=== PATIENT | male | born 1955 | race Caucasian/White ===

== ENCOUNTER 2019-10-11 10:27 | Outpatient (CLI) | payer MEDICARE, OTHER, SELFPAY ==
--- NOTE | 2019-10-11 | ECHO_ITS ---
Patient Info Name: Stephen Benoit Age: 63 years : 1955 Gender: Male Ht: 72 in Wt: 190 lbs BSA: 2.10 m2 HR: 65 bpm BP: 149 / 77 mmHg Heart Rhythm: Sinus Rhythm Technical Quality: Good Exam Date: 10/11/2019 11:27 AM Exam Location: [facility] Pulmonary Patient Status: Outpatient Admit Date: 10/11/2019 Staff Ordering Physician: PHYSICIAN NOT ON STAFF, NONSTAFF Elevator Constructor: Leonard Perez RDCS, RT Attending Provider: PHYSICIAN NOT ON STAFF, NONSTAFF Exam Type: CA echo doppler color flow Study Info Indications I27.2 - Other secondary pulmonary hypertension Complete two-dimensional, color flow and Doppler transthoracic echocardiogram is performed. Summary 1. Left ventricle is mildly enlarged with moderate concentric hypertrophy. The left ventricular systolic ejection fraction is calculated to be 57% and visually it appears 55-60%. Grade 2 diastolic dysfunction is present. There appears to be mild inferior apical hypokinesis present. The global longitudinal strain average is -11%, moderately reduced, suggesting early systolic dysfunction. 2. There is mild tricuspid valve regurgitation. 3. Mild pulmonary hypertension, estimated pulmonary arterial systolic pressure is 40 mmHg. 4. normal sinus rhythm. Left Ventricle Left ventricle is mildly enlarged with moderate concentric hypertrophy. The left ventricular systolic ejection fraction is calculated to be 57% and visually it appears 55-60%. Grade 2 diastolic dysfunction is present. There appears to be mild inferior apical hypokinesis present. The global longitudinal strain average is -11%, moderately reduced, suggesting early systolic dysfunction. Left ventricular systolic function is normal, estimated at 55-60%. There is moderately increased left ventricular wall thickness. Left ventricular septal wall motion is normal. The left ventricular diastolic function is grade II diastolic dysfunction. Global longitudinal strain is moderately elevated at 11 %. Right Ventricle Right ventricular chamber dimension is normal. Right ventricular systolic function is normal. Left Atria Left atrial chamber dimension is moderately enlarged. Right Atria Right atrial chamber dimension is normal. Aortic Valve The aortic valve is trileaflet. There is no aortic valve sclerosis. There is no aortic valve stenosis. There is no aortic valve regurgitation. Pulmonic Valve The pulmonic valve is normal. There is no pulmonic valve stenosis. There is no pulmonic regurgitation. Mitral Valve The mitral valve has normal leaflets. There is no mitral valve stenosis. There is trace mitral valve regurgitation. Tricuspid Valve The tricuspid valve leaflets are normal. There is no significant tricuspid valve stenosis. There is mild tricuspid valve regurgitation. Mild pulmonary hypertension, estimated pulmonary arterial systolic pressure is 40 mmHg. Pericardium/Pleural The pericardium appears normal. There is no pericardial effusion. Inferior Vena Cava Normal inferior vena cava with >50% collapse upon inspiration consistent with Empty right atrial pressure, 10 mmHg. Aorta The aortic root size at the sinus of Valsalva is normal. The prox ascending aorta size is normal. Left Ventricular Outflow Tract Name Value Normal LVOT 2D
--- NOTE | 2019-10-16 13:33 | WPDSIXMINUTE ---
Six Minute Walk Six Minute Walk: DOS: 10/11/2019 REQUESTING: Dr. Bela Carranza REASON FOR TESTING: Scleroderma SIX MINUTE WALK this test was conducted per ATS guidelines. This test was conducted on room air. The baseline saturation is 97% and the pulse is 72. The patient walked for 6 minutes without stopping, ending saturation 96% and pulse was 98. The wrist oximeter was unable to obtain readings easily during the test. There was no apparent drop in saturation. IMPRESSION: This Walk study does not show drop in saturation or need for supplemental oxygen with exertion. The patient walked 700 ft, 213 meters, which is less than expected for age.
--- NOTE | 2019-10-16 17:03 | WPDPFTINT ---
PFT Interpretation PFT Interpretation: DOS: 10/11/2019 REQUESTING: Dr. Bela Carranza REASON FOR TESTING: Scleroderma PULMONARY FUNCTION TESTS Results are reproducible and reliable. Spirometry: FEV1 is 42%, 1.41 L. FVC 48%. FEV1% is reduced. No bronchodilator was given. Lung volumes: TLC 55%, moderately severe restrictive impairment. RV/TLC is increased at 41% consistent with air trapping. Airway resistance increased 255%. Diffusion: DLCO is 38%, severely decreased. Flow volume loop: Scooping of the expiratory limb and reduction in overall size consistent with restriction and obstruction. IMPRESSION: Moderately severe restriction and severe obstructive ventilatory defect with air trapping, increased airway resistance and severe diffusion impairment. Compared to a prior PFT 06/16/2018, DLCO is lower, 38% compared to 48% in 2019. FEV1 is similar 42% compared to 46%. TLC is lower, 55% vs 62%. Overall progression of restrictive and obstructive deficits consistent with scleroderma with lung involvement. Krys Mcgrath MD
== END 2019-10-11 10:28 | disposition home or self-care (01) ==
PROVIDERS: PCP Psychiatry & Neurology Neurology
DX: I27.29 Other secondary pulmonary hypertension (principal); R94.2 Abnormal results of pulmonary function studies
CPT/HCPCS: 93306; 94375; 94618; 94726; 94729

== ENCOUNTER 2019-10-24 01:18 | Inpatient (IN) | payer MEDICARE, OTHER, SELFPAY ==
[2019-10-24] VITALS (10 sets, daily range): BP systolic 78–208; BP diastolic 56–82; PULSE 63–93; RESP 16–34; TEMP 36.4–36.8; O2SAT 96–100; BMI 26.6
--- NOTE | ~2019-10-24 | XR_ITS ---
EXAMINATION: XR chest 1V portable DATE: 10/24/2019 01:51 INDICATION: Shortness of breath. TECHNIQUE: A single frontal view of the chest was obtained. COMPARISON: Chest single view 08/01/2017, CT abdomen and pelvis 10/19/2017 FINDINGS: There is a chronic small left pleural effusion. There is a diffuse interstitial pattern in the lungs, consistent with mild pulmonary edema. No pneumothorax. The heart size is normal. Median st ernotomy wires and mediastinal surgical clips are seen, likely from prior coronary artery bypass mayra ting. IMPRESSION: 1. Mild pulmonary edema. 2. Chronic small left pleural effusion. Reviewed, dictated and finalized at location A.
--- NOTE | 2019-10-24 01:40 | ECG_ITS ---
Measurements Intervals [place] Rate: 89 P: 64 [place]: 192 QRS: 51 QRSD: 99 T: 44 QT: 367 QTc: 448 Interpretive Statements SINUS RHYTHM POSSIBLE LEFT ATRIAL ENLARGEMENT ANTEROSEPTAL INFARCT, AGE INDETERMINATE BORDERLINE ST-T WAVE ABNORMALITY- INF/HIGH LAT LEADS BASELINE ARTIFACT- I, II, III, AVR, AVL, AVF, V4-V6 ABNORMAL ECG Electronically Signed On 10-24-2019 7:13:09 CDT by Terry Hernandez D.O.
[2019-10-24 01:53] LABS: Basophils Percent Auto 0.5 % (0.2-1.2); Eosinophils Absolute Auto 0.2 K/mm3 (0-0.3); Eosinophils Percent Auto 2.9 % (0-4.4); Hematocrit 33.2 % (42.0-52.0); Hemoglobin 9.6 g/dL (14.0-18.0); Immature Granulocyte Absolute 0.08 K/mm3 (0.00-0.031); Lymphocytes Absolute Auto 1.28 K/mm3 (0.9-3.2); Lymphocytes Percent Auto 15.9 % (18.3-44.2); Mean Corpuscular HGB Conc 28.9 g/dl (32-36); Mean Corpuscular Hemoglobin 25.2 pg (26-34); Mean Corpuscular Volume 87.1 fl (80-100); Mean Platelet Volume 11.6 fl (7.4-10.4); Monocytes Absolute Auto 1.1 K/mm3 (0.1-0.6); Monocytes Percent Auto 13.7 % (2.6-8.5); Neutrophils Absolute Auto 5.3 K/mm3 (1.3-6.7); Platelet Count Result 267 k/mm3 (150-375); Red Blood Count 3.81 M/mm3 (4.6-6.20); Red Cell Distribution Width 18.2 % (11.5-14.5); White Blood Count 8.1 K/mm3 (4.5-10.0)
[2019-10-24 02:02] LABS: INR 1.2; Partial Thromboplastin Time 31.4 SECONDS (22.3-36.8); Prothrombin Time 14.4 Seconds (11.1-14.7)
[2019-10-24 02:07] LABS: Anion Gap 10 mmol/L (8-16); Blood Urea Nitrogen 35 mg/dL (9-20); Carbon Dioxide 23 mmol/L (22-30); Chloride 103 mmol/L (98-107); Estimated CRCL calculation 45 ml/min; Estimated Glomerular Filt Rate 47; Glucose 159 mg/dL (75-110); Potassium 4.6 mmol/L (3.4-5.0); Sodium 136 mmol/L (137-145)
[2019-10-24 02:11] LABS: Alveolar/Arterial O2 Gradient 611.7 mmHg; Carboxyhemoglobin 0.7 % THb (0-2.0); Fractional Inspired Oxygen 100 %; HCO3 ABG 22.9 mEq/l (22.0-26.0); Methemoglobin ABG 0.2 %THb (0-1.5); Oxygen Content ABG 11.8 %vol (16.0-22.0); Oxygen Saturation ABG 87.4 % (95.0-100.0); Oxyhemoglobin 83.9 % THb (90.0-100.0); PCO2 ABG 44.6 mmHg (35.0-45.0); PO2 ABG 56.7 mmHg (80.0-100.0); PO2 FiO2 Ratio Arterial Blood 0.57 %; Reduced Hemoglobin 15.2 %THb (0-5.0); pH ABG 7.328 (7.350-7.450)
[2019-10-24 02:12] LABS: Modified Allen's Test Pass; Site Drawn LEFT RADIAL
[2019-10-24 02:12] LABS: Hypochromasia 1+ (NORMAL); Ovalocytes 1+ (NORMAL); Platelet Estimate Adequate (Adequate)
[2019-10-24 02:13] LABS: Device OTHER DEVICE
[2019-10-24 02:19] LABS: NT Pro B Type Natriuretic Pept 3660 PG/ML (5-100); Troponin I < 0.012 ng/mL (0.000-0.034)
[2019-10-24] MEDS: FUROSEMIDE INJ 40 MG/4 ML VIAL IV PUSH (02:39)
--- NOTE | 2019-10-24 02:44 | ED.SOB ---
HPI - SOB/Dyspnea General Chief Complaint: Shortness of Breath/Dyspnea Stated Complaint: sob Time Seen by Provider: 10/24/19 01:20 Source: patient Mode of arrival: ambulatory Limitations: clinical condition History of Present Illness HPI Narrative: This patient is a 63 year old male with history of scleroderma who presents for evaluation of sudden onset shortness of breath. Patient has chronic sob due to his scleroderma. He denies worsening cough , chest pain or fever. His reports she noticed that he appeared to be building fluid . She states his umbilicus is protruding more and he seems to have more leg edema. He denies history of CHF but he does see a warp drawer. On EMS arrival, it was stated that patient's oxygen saturation was 87% on room and he had labored breathing. He was placed on BIPAP by EMS. He states he feels better. Related Data Home Medications Medication Instructions Recorded Confirmed aspirin [Adult Low Dose Aspirin] 81 mg PO DAILY 10/24/19 10/24/19 famotidine 40 mg PO DAILY 10/24/19 10/24/19 fluticasone furoate 2 spray INTRANASAL DAILY 10/24/19 10/24/19 gabapentin 300 mg PO BID 10/24/19 10/24/19 glimepiride 4 mg PO DAILY 10/24/19 10/24/19 levothyroxine 75 mcg PO DAILY 10/24/19 10/24/19 losartan 50 mg PO DAILY 10/24/19 10/24/19 metoprolol succinate 50 mg PO DAILY 10/24/19 10/24/19 nifedipine 30 mg PO DAILY 10/24/19 10/24/19 omeprazole 20 mg PO DAILY 10/24/19 10/24/19 rosuvastatin 40 mg PO DAILY 10/24/19 10/24/19 sitagliptin [Januvia] 100 mg PO DAILY 10/24/19 10/24/19 tramadol 50 mg PO Q4H PRN 10/24/19 10/24/19 Allergies Allergy/AdvReac Type Severity Reaction Status Date / Time No Known Allergies Allergy Depression Uncoded 10/24/19 01:22 Review of Systems Review of Systems: All systems reviewed & are unremarkable except as noted in HPI and below Constitutional: Constitutional: Denies chills and Denies fever(s) Cardiovascular: Cardiovascular: Denies chest pain Respiratory: Respiratory: Denies cough, Reports dyspnea and Denies wheezing Gastrointestinal: Gastrointestinal: Denies abdominal pain, Denies nausea and Denies vomiting PMFSH Past Medical History Medical History (Updated 10/24/19 @ 07:23 by Maegan Veronica MD) Hypertension Scleroderma Surgical History Surgical History (Updated 10/24/19 @ 07:19 by Maegan Veronica MD) Hx of CABG Family History Family History (Updated 10/24/19 @ 04:11 by Iglesia Aleman RN) Mother Colon cancer Social History Social History Smoking packs per day: 1.5 Smoking cigarettes per day: 30.0 Years smoked: 43 Smoking pack-years: 64.50 Smoking status: Former smoker Smoking end date: 03/07/11 Alcohol intake: former Substance use: never Spiritual care concerns: No Exam Const: General: alert and ill appearing acutely Other: mild distress Eyes: EOM: EOMs intact bilaterally Resp: Effort & Inspection: no retractions, tachypneic and no use of accessory muscles Auscultation: rales (right) Cardio: Rate: regular rate Rhythm: regular rhythm Heart sounds: Murmur heart sound present GI: Inspection: distended GI Palp: Yes Soft to palpation, No Tenderness to palpation present (GI) and No Guarding due to palpation present (GI) Skin: General skin exam: pallor Neuro: General: patient oriented x3 and moves all extremities Extrem: General: edema bilateral Course Reevaluation(s) Reevaluation #1: Patient states he feels better. His RR 20 and 100 on 4 L NC. I discussed that he will need to be admitted. He is agreeable to staying at [facility] Date: 10/24/19 Time: 02:53 Consultations Consultation #1: I Discussed case with Dr. moore who accepts patient to medical floor. He recommends swabbing for covid Date: 10/24/19 Time: 02:54 Vital Signs Vital signs: Vital Signs Temperature 97.7 F 10/24/19 01:18 Pulse Rate 93 10/24/19 01:18 Respiratory Rate 34 H 10/24/19 01:18 Blood Pressure 208/82
--- NOTE | 2019-10-24 04:10 | ADMGEN ---
This patient, Stephen Benoit, was admitted to 3 [facility] Surg Room 326-01. Patient/family oriented to hospital policies and general routines including ID bracelet, bed and alarms, visiting hours, pain management, procedures, bathroom and other care routines, personal items, smoking policy, room service/diet, and visiting hours. Valuables list has been completed. Information on how to activate the Rapid Response Team has been discussed. Patient/Family are encouraged to report perceived risks to care and to ask questions if they do not understand what they are told or what they should do.
[2019-10-24] MEDS: SODIUM CHLORIDE 0.9% IV 500 ML 999 ML IV CONT ×2 (04:31→05:40)
[2019-10-24] MEDS: LEVOTHYROXINE SODIUM 75 MCG TABLET PO (07:41)
[2019-10-24] MEDS: ASPIRIN 81 MG ENTERIC TABLET PO (09:03)
[2019-10-24] MEDS: ROSUVASTATIN 10 MG TABLET 40 MG PO (09:03)
[2019-10-24] MEDS: FAMOTIDINE 20 MG TABLET 40 MG PO (09:03)
[2019-10-24] MEDS: PANTOPRAZOLE SOD SESQUIHYDRATE 20 MG TAB PO (09:03)
[2019-10-24] MEDS: GLIMEPIRIDE 2 MG TABLET 4 MG PO (09:03)
--- NOTE | 2019-10-24 09:10 | PM.IMHP ---
H&P: HPI History of Present Illness Date/Time: 10/24/19 09:10 Chief complaint: acute respiratory failure with hypoxia Narrative: Date of admission: 10/24/2019 Date of servie: 10/24/2019 Stephen Benoit is a 63 year old male with a history of scleroderma, type 2 diabetes mellitus with nephropathy, HTN, HLD, and CAD s/p CABG in 2018 who presented to the emergency department on 10/24/2019 with complaints of shortness of breath. He said that about 1 day ago, his commented that he was filling up with fluid especially in his lower extremities and his abdomen. He notes that a couple days before that he has been waking up in the middle of the night trying to catch his breath. Yesterday he was outside digging in his backyard with a shovel and had to take several breaks because he felt short of breath. He went to bed that night and woke at approximately 12:30 am gasping for breath and hyperventilating. At that time, his called EMS. He was placed on BiPAP and upon arrival to the emergency department his shortness of breath had improved. He was put on 4 L O2 per nasal cannula and was maintaining adequate oxygenation. He is not on any oxygen at home. Upon my evaluation this morning, he states I feel 300% better than I did last night. He reports chronic chest tightness secondary to his scleroderma which makes it difficult for him to take deep breaths. He denies cough or dyspnea on exertion. He was previously experiencing orthopnea but feels he can lay flat now. He states he is able to take a nice deep breath now and he had not been able to do that the past few days. Review of Systems Review of Systems: Narrative: A 12 point review of systems was reviewed with pertinent positives and negatives as per HPI and below. He denies fever, chills, nausea, vomiting, or abdominal pain. He denies dizziness or lightheadedness. He has neuropathy but denies any numbness or tingling at this time. He denies dysuria, hematuria, urgency or frequency. He alternated between being constipated and having diarrhea, but he had a soft formed BM today. He denies any symptoms of GERD. He denies dysphagia, odynophagia, lof taste or loss of smell. No visual changes. No headaches or confusion. He denies sick contacts or recent travel. He has been following social distance guidelines and wears a mask. 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 [facility] Past Medical History Medical History (Updated 10/24/19 @ 17:24 by Sheela Casillas PA-C) CKD (chronic kidney disease) Congestive heart failure Coronary artery disease Hyperlipidemia Hypertension Hypothyroidism Myocardial infarction Raynauds disease Scleroderma Small bowel obstruction Type 2 diabetes mellitus Surgical History Surgical History (Updated 10/24/19 @ 09:15 by Sheela Casillas PA-C) H/O cardiac catheterization History of appendectomy History of bilateral carpal tunnel release History of tonsillectomy Hx of CABG 2018 Family History Family History (Updated 10/24/19 @ 09:21 by Sheela Casillas PA-C) Mother Colon cancer Father Lung cancer Social History Social History (Updated 10/24/19 @ 09:24 by Sheela Casillas PA-C) Social History: Mr. Benoit lives at home with his . He is independent in his ADLs. He has 2 adult children. He is retired from the [employer]. His PCP is Dr. Sanz at [facility]. He designates his as his surrogate decision maker and he would like to be a full code. Smoking packs per day: 1.5 Smoking cigarettes per day: 30.0 Years smoked: 45 Smoking pack-years: 67.50 Smoking status: Former smoker Smoking end date: 03/07/11 Alcohol intake: current Alcohol use details: Approximately 1 drink/mo Substance use: never Living arrangements: with family Occupation/Education: retired Spiritual care concerns: No Meds Home Medications and Allergies Ho
[2019-10-24 10:21] LABS: Glucose Point of Care 178 (65-105)
[2019-10-24] MEDS: INSULIN ASPART (*BKC) 100 UNITS/ML SUB-Q ×2 (12:13→17:40)
[2019-10-24 14:19] LABS: SARS-CoV-2 RNA PCR Positive
--- NOTE | 2019-10-24 16:15 | PC.NURSE ---
Notified Sheela PAULINO that patient COVID is positive. No new orders were obtained.
[2019-10-24 17:38] LABS: Glucose Point of Care 347 (65-105)
[2019-10-24 17:38] LABS: Glucose Point of Care 243 (65-105)
[2019-10-24] MEDS: FLUTICASONE PROPIONATE 0.05% NA SPR 16 GM BTL (*BKC) 2 SPRAY NASAL (17:42)
[2019-10-24] MEDS: guaiFENesin 12 HR 600 MG TABCR PO (21:04)
[2019-10-24 22:03] LABS: Glucose Point of Care 281 (65-105)
[2019-10-25] VITALS: BP 144/83; PULSE 74; PULSE 75; RESP 18; TEMP 36.9; O2SAT 94
[2019-10-25 04:00] VITALS: BP 152/77; PULSE 74; PULSE 77; RESP 20; TEMP 36.4; O2SAT 100
[2019-10-25] MEDS: LEVOTHYROXINE SODIUM 75 MCG TABLET PO (06:17)
[2019-10-25 06:36] LABS: Basophils Percent Auto 0.1 % (0.2-1.2); Eosinophils Percent Auto 0.4 % (0-4.4); Hematocrit 28.9 % (42.0-52.0); Hemoglobin 8.3 g/dL (14.0-18.0); Immature Granulocyte Absolute 0.06 K/mm3 (0.00-0.031); Immature Granulocyte Percent A 0.7 % (0-0.5); Lymphocytes Percent Auto 9.5 % (18.3-44.2); Mean Corpuscular HGB Conc 28.7 g/dl (32-36); Mean Corpuscular Hemoglobin 24.8 pg (26-34); Mean Corpuscular Volume 86.3 fl (80-100); Mean Platelet Volume 11.3 fl (7.4-10.4); Monocytes Absolute Auto 0.7 K/mm3 (0.1-0.6); Monocytes Percent Auto 7.8 % (2.6-8.5); Neutrophils Absolute Auto 6.8 K/mm3 (1.3-6.7); Neutrophils Percent Auto 81.5 % (45.5-73.1); Platelet Count Result 216 k/mm3 (150-375); Red Blood Count 3.35 M/mm3 (4.6-6.20); Red Cell Distribution Width 17.3 % (11.5-14.5); White Blood Count 8.4 K/mm3 (4.5-10.0)
[2019-10-25 06:52] LABS: Alanine Aminotransferase 9 U/L (4-50); Albumin Level 3.9 g/dL (3.5-5.1); Alkaline Phosphatase 58 U/L (38-126); Anion Gap 9 mmol/L (8-16); Aspartate Amino Transferase 15 U/L (17-59); Bilirubin,Total 0.2 mg/dL (0.2-1.3); Blood Urea Nitrogen 35 mg/dL (9-20); Calcium 8.4 mg/dL (8.4-10.2); Carbon Dioxide 25 mmol/L (22-30); Chloride 103 mmol/L (98-107); Estimated CRCL calculation 50 ml/min; Estimated Glomerular Filt Rate 47; Glucose 178 mg/dL (75-110); Potassium 4.9 mmol/L (3.4-5.0); Sodium 137 mmol/L (137-145)
[2019-10-25 08:00] VITALS: BP 134/76; PULSE 73; PULSE 76; RESP 16; TEMP 36.6; O2SAT 100
[2019-10-25] MEDS: FAMOTIDINE 20 MG TABLET 40 MG PO (08:46)
[2019-10-25] MEDS: ASPIRIN 81 MG ENTERIC TABLET PO (08:46)
[2019-10-25] MEDS: PANTOPRAZOLE SOD SESQUIHYDRATE 20 MG TAB PO (08:47)
[2019-10-25] MEDS: GLIMEPIRIDE 2 MG TABLET 4 MG PO (08:47)
[2019-10-25] MEDS: ROSUVASTATIN 10 MG TABLET 40 MG PO (08:47)
[2019-10-25] MEDS: guaiFENesin 12 HR 600 MG TABCR PO ×2 (08:47→23:51)
[2019-10-25] MEDS: FUROSEMIDE INJ 40 MG/4 ML VIAL IV PUSH (08:48)
[2019-10-25] MEDS: ENOXAPARIN 40 MG/0.4 ML SYRINGE SUB-Q (08:48)
[2019-10-25] MEDS: FLUTICASONE PROPIONATE 0.05% NA SPR 16 GM BTL (*BKC) 2 SPRAY NASAL (08:52)
[2019-10-25 10:16] LABS: Glucose Point of Care 154 (65-105)
--- NOTE | 2019-10-25 11:51 | PM.IMPN ---
Progress Note: A&P Assessment and Plan (1) Acute respiratory failure with hypoxia: Code(s): J96.01 - Acute respiratory failure with hypoxia Status: Acute Assessment and Plan: Patient was hypoxic and placed on BiPAP by EMS. At arrival, he was transitioned to 4L O2 NC. Low O2 saturation on ABG. He is currently maintaining adequate oxygenation on room air. Supplemental O2 as needed with goal saturation 92% or above. Wean to goal. (2) COVID-19: Code(s): U07.1 - COVID-19 Status: Acute Assessment and Plan: Patient tested positive for COVID-19 on 10/24/2019. Symptoms of shortness of breath began approximately 3 days prior but denied any additional symptoms. He has been afebrile. Continue IV dexamethasone given oxygen requirements Trend acute phase reactants Continue albuterol MDI as needed. Supportive care with acetaminophen as needed and Mucinex Continue isolation precautions (3) Congestive heart failure: Qualifiers: Heart failure chronicity: acute on chronic Heart failure type: diastolic Qualified Code(s): I50.33 - Acute on chronic diastolic (congestive) heart failure Code(s): I50.9 - Heart failure, unspecified Status: Acute Assessment and Plan: BNP elevated at 3660. CXR shows chronic small left pleural effusion and mild pulmonary edema. 1+ pedal edema. Recent echo performed 10/10 showed EF of 55-60% and grade 2 diastolic dysfunction. Continue diuresis IV Lasix 40 mg daily; patient is still edematous Monitor I&O and daily weights Heart healthy diet (4) Hypertension: Qualifiers: Hypertension type: essential hypertension Qualified Code(s): I10 - Essential (primary) hypertension Code(s): I10 - Essential (primary) hypertension Status: Acute Assessment and Plan: Blood pressure reviewed today and is stable, mildly elevated 140-150s systolic. Resume losartan and metoprolol for tomorrow am meds Monitor blood pressure daily (5) CKD (chronic kidney disease): Qualifiers: Chronic kidney disease stage: unspecified stage Qualified Code(s): N18.9 - Chronic kidney disease, unspecified Code(s): N18.9 - Chronic kidney disease, unspecified Status: Acute Assessment and Plan: Secondary to diabetes. He is established with nephrology. Review of prior labs shows baseline creatinine 1.5. Labs today remain consistent with baseline. Monitor renal function closely with diuresis Renally dose medications and avoid nephrotoxic agents (6) Type 2 diabetes mellitus: Qualifiers: Diabetes mellitus exterminator helper termite insulin use: without exterminator helper termite use Diabetes mellitus complication status: with neurologic complications Diabetes mellitus complication detail: with polyneuropathy Qualified Code(s): E11.42 - Type 2 diabetes mellitus with diabetic polyneuropathy Code(s): E11.9 - Type 2 diabetes mellitus without complications Status: Acute Assessment and Plan: A1c is 7.0 (10/25/19). Blood sugars evaluated and are stable. Continue accuchecks ACHS, SSI, and hypoglycemic protocol Continue januvia and glimepiride (7) Scleroderma: Code(s): M34.9 - Systemic sclerosis, unspecified Status: Acute Assessment and Plan: Stable. He is established with rheumatology and pulmonology. Recent PFTs showed moderate to severe restrictive and obstructive deficits consistent with scleroderma with lung involvement. He is not on any medications at this time. Continue to monitor Subjective Date/time seen: 10/25/19 11:51 Interval history: Date of service: 10/25/2019 Mr. Benoit reports feeling much better today. He feels his SOB has improved. He denies orthopnea, TORRES, cough or chest pain. He complains of sinus drainage. He has no dysphagia. His sense of taste and smell are intact. His appetite is good. He denies nausea, vomiting, diarrhea, abdominal pain,
[2019-10-25 12:00] VITALS: BP 151/65; PULSE 73; PULSE 77; RESP 16; TEMP 36.7; O2SAT 99
[2019-10-25] MEDS: INSULIN ASPART (*BKC) 100 UNITS/ML SUB-Q ×2 (12:23→17:11)
[2019-10-25 14:06] LABS: Glucose Point of Care 227 (65-105)
[2019-10-25 16:00] VITALS: BP 162/83; PULSE 71; PULSE 75; RESP 16; TEMP 36.5; O2SAT 99
[2019-10-25 17:31] LABS: Glucose Point of Care 307 (65-105)
[2019-10-25 20:00] VITALS: BP 153/89; PULSE 72; RESP 20; TEMP 36.7; O2SAT 96
[2019-10-26] VITALS: BP 155/78; PULSE 71; RESP 20; TEMP 37; O2SAT 96
[2019-10-26 02:13] LABS: Glucose Point of Care 188 (65-105)
[2019-10-26 04:00] VITALS: BP 165/82; PULSE 65; RESP 20; TEMP 36.5; O2SAT 98
[2019-10-26 06:11] LABS: Basophils Percent Auto 0.1 % (0.2-1.2); Eosinophils Absolute Auto 0.1 K/mm3 (0-0.3); Eosinophils Percent Auto 0.8 % (0-4.4); Hemoglobin 8.3 g/dL (14.0-18.0); Immature Granulocyte Absolute 0.06 K/mm3 (0.00-0.031); Immature Granulocyte Percent A 0.8 % (0-0.5); Lymphocytes Absolute Auto 0.93 K/mm3 (0.9-3.2); Lymphocytes Percent Auto 12.4 % (18.3-44.2); Mean Corpuscular HGB Conc 28.6 g/dl (32-36); Mean Corpuscular Hemoglobin 24.1 pg (26-34); Mean Corpuscular Volume 84.3 fl (80-100); Mean Platelet Volume 11.7 fl (7.4-10.4); Monocytes Absolute Auto 0.8 K/mm3 (0.1-0.6); Monocytes Percent Auto 10.1 % (2.6-8.5); Neutrophils Absolute Auto 5.7 K/mm3 (1.3-6.7); Neutrophils Percent Auto 75.8 % (45.5-73.1); Platelet Count Result 229 k/mm3 (150-375); Red Blood Count 3.44 M/mm3 (4.6-6.20); Red Cell Distribution Width 17.3 % (11.5-14.5); White Blood Count 7.5 K/mm3 (4.5-10.0)
[2019-10-26 06:25] LABS: Alanine Aminotransferase 8 U/L (4-50); Albumin Level 4.1 g/dL (3.5-5.1); Alkaline Phosphatase 58 U/L (38-126); Anion Gap 11 mmol/L (8-16); Aspartate Amino Transferase 14 U/L (17-59); Bilirubin,Total 0.3 mg/dL (0.2-1.3); Blood Urea Nitrogen 37 mg/dL (9-20); CRP 0.9 mg/dL (<1.0); Calcium 8.6 mg/dL (8.4-10.2); Carbon Dioxide 23 mmol/L (22-30); Chloride 102 mmol/L (98-107); Estimated CRCL calculation 53 ml/min; Estimated Glomerular Filt Rate 51; Glucose 165 mg/dL (75-110); Lactate Dehydrogenase 407 U/L (313-618); Potassium 4.3 mmol/L (3.4-5.0); Sodium 136 mmol/L (137-145)
[2019-10-26 06:31] LABS: Anisocytosis 1+ (NORMAL); Hypochromasia 1+ (NORMAL); Platelet Estimate Adequate (Adequate)
[2019-10-26] MEDS: LEVOTHYROXINE SODIUM 75 MCG TABLET PO (07:24)
[2019-10-26] MEDS: ASPIRIN 81 MG ENTERIC TABLET PO (07:43)
[2019-10-26] MEDS: GLIMEPIRIDE 2 MG TABLET 4 MG PO (07:43)
[2019-10-26] MEDS: ENOXAPARIN 40 MG/0.4 ML SYRINGE SUB-Q (07:44)
[2019-10-26] MEDS: guaiFENesin 12 HR 600 MG TABCR PO (07:44)
[2019-10-26] MEDS: FAMOTIDINE 20 MG TABLET 40 MG PO (07:44)
[2019-10-26] MEDS: ROSUVASTATIN 10 MG TABLET 40 MG PO (07:45)
[2019-10-26] MEDS: PANTOPRAZOLE SOD SESQUIHYDRATE 20 MG TAB PO (07:45)
[2019-10-26] MEDS: FUROSEMIDE INJ 40 MG/4 ML VIAL IV PUSH (07:46)
[2019-10-26] MEDS: FLUTICASONE PROPIONATE 0.05% NA SPR 16 GM BTL (*BKC) 2 SPRAY NASAL (07:47)
[2019-10-26 08:00] VITALS: BP 177/66; PULSE 66; RESP 18; TEMP 36.2; O2SAT 99
[2019-10-26 08:06] LABS: Glucose Point of Care 119 (65-105)
--- NOTE | 2019-10-26 10:14 | PM.DS ---
DS: Admitting Diagnosis Admitting Diagnosis Admitting Diagnosis: acute respiratory failure with hypoxia DS: Discharge Diagnosis Discharge Diagnosis (1) Acute respiratory failure with hypoxia: Code(s): J96.01 - Acute respiratory failure with hypoxia Status: Acute Assessment and Plan: Likely secondary to COVID-19 and CHF exacerbation. Initially requiring BiPAP by EMS en route to emergency department. At arrival, he was transitioned to 4L O2 NC. Oxygen was weaned and he was maintaining adequate oxygen saturations on room air. (2) COVID-19: Code(s): U07.1 - COVID-19 Status: Acute Assessment and Plan: Patient tested positive for COVID-19 on 10/24/2019. Symptoms of shortness of breath began approximately 3 days prior but denied any additional symptoms. He remained afebrile. He was started on dexamethasone given his oxygen requirements and he will continue p.o. dexamethasone outpatient to complete a total of 10 days of therapy. Discussed at length self isolation and proper precautions to prevent the transmission of COVID-19. (3) Congestive heart failure: Qualifiers: Heart failure chronicity: acute on chronic Heart failure type: diastolic Qualified Code(s): I50.33 - Acute on chronic diastolic (congestive) heart failure Code(s): I50.9 - Heart failure, unspecified Status: Acute Assessment and Plan: BNP elevated at 3660. CXR showed chronic small left pleural effusion and mild pulmonary edema. He had pedal edema. Recent echo performed 10/10 showed EF of 55-60% and grade 2 diastolic dysfunction. He was diuresed with IV Lasix. We discussed monitoring daily weights at home and low-sodium diet. (4) Hypertension: Qualifiers: Hypertension type: essential hypertension Qualified Code(s): I10 - Essential (primary) hypertension Code(s): I10 - Essential (primary) hypertension Status: Acute Assessment and Plan: Blood pressures were monitored daily. He did have an episode of hypotension and his p.o. antihypertensives were held. BP stabilized and losartan and metoprolol were resumed. Continue p.o. losartan and metoprolol. (5) CKD (chronic kidney disease): Qualifiers: Chronic kidney disease stage: unspecified stage Qualified Code(s): N18.9 - Chronic kidney disease, unspecified Code(s): N18.9 - Chronic kidney disease, unspecified Status: Acute Assessment and Plan: Secondary to diabetes. He is established with nephrology. Review of prior labs showed baseline creatinine 1.5. Renal function was monitored closely due to diuresis and remained at baseline. (6) Type 2 diabetes mellitus: Qualifiers: Diabetes mellitus supervisor intermediates insulin use: without supervisor intermediates use Diabetes mellitus complication status: with neurologic complications Diabetes mellitus complication detail: with polyneuropathy Qualified Code(s): E11.42 - Type 2 diabetes mellitus with diabetic polyneuropathy Code(s): E11.9 - Type 2 diabetes mellitus without complications Status: Acute Assessment and Plan: A1c was 7.0 (10/25/19). Blood sugars were monitored and remained stable with sliding scale insulin. Recommended monitoring his blood sugars TID at home, especially given steroid therapy. Continue Januvia and glimepiride. (7) Scleroderma: Code(s): M34.9 - Systemic sclerosis, unspecified Status: Acute Assessment and Plan: No active issues, although I suspect this contributed to his shortness of breath. He is established with rheumatology and pulmonology. Recent PFTs showed moderate to severe restrictive and obstructive deficits consistent with scleroderma with lung involvement. He is not on any medications at this time. Follow-up with rheumatology as scheduled. DS: Summary Hospital Course Reason for hospitalization: acute respiratory failure with hypoxia Hospital Course: date of
== END 2019-10-26 11:01 | disposition home or self-care (01) | DRG 177 ==
LOC: ANHED 02:24 → ANH3MEDSUR 06:55
PROVIDERS: Admitting Provider Family Medicine; Emergency Provider General Practice; Visit Provider Physician Assistant
DX: U07.1 COVID-19 (principal); J96.01 Acute respiratory failure with hypoxia; I50.33 Acute on chronic diastolic (congestive) heart failure; I13.0 Hypertensive heart and chronic kidney disease with heart failure and stage 1 through stage 4 chronic kidney disease, or unspecified chronic kidney disease; E11.22 Type 2 diabetes mellitus with diabetic chronic kidney disease; N18.9 Chronic kidney disease, unspecified; M34.9 Systemic sclerosis, unspecified
CPT/HCPCS: 36415; 36600; 71045; 80048; 80053; 82375; 82728; 82805; 83036; 83050; 83605; 83615; 83880; 84484; 85025; 85610; 85730; 86140; 87040; 87635; 93005; 96374; 99291; A9270; C9803; J0131; J0456; J0696; J1100; J1650; J1815; J1940; J7030; J7040; U0003

== ENCOUNTER 2020-01-28 12:18 | Outpatient (CLI) | payer MEDICARE, OTHER, SELFPAY ==
--- NOTE | ~2020-01-28 | XR_ITS ---
EXAMINATION: XR chest 2V EXAM DATE: 01/28/2020 12:37 INDICATION: Cough. TECHNIQUE: Frontal and lateral projections of the chest obtained and reviewed. Comparison is made to prior examination from 10/24/2019. FINDINGS: There is multi segmental left lower lobe airspace disease, most likely atelectasis and inf ection but underlying malignancy not excludable. There is small to moderate left pleural effusion. Pr eviously seen pulmonary edema has resolved. There is aortic arteriosclerosis. Sternotomy wires are pr esent without findings to suggest sternal dehiscence. Cardiomediastinal silhouette is normal. There i s no pneumothorax suspected. There are mild bony degenerative changes. IMPRESSION: 1. Patchy left basilar opacity likely infection or atelectasis but underlying malignancy not excluda ble. Consider one-month follow-up chest x-ray and if this persists a CT scan. 2. Small to moderate left pleural effusion. Reviewed, dictated and finalized at location B. CTOR OF DIGITAL MARKETING IMPRESSION: 1. Patchy left basilar opacity likely infection or atelectasis but underlying malignancy not excludable. Consider one-month follow-up chest x-ray and if this persists a CT scan. 2. Small to moderate left pleural effusion.
== END 2020-01-28 12:19 | disposition home or self-care (01) ==
PROVIDERS: Visit Provider Physician Assistant
DX: R05 Cough (principal); R91.8 Other nonspecific abnormal finding of lung field; J90 Pleural effusion, not elsewhere classified
CPT/HCPCS: 71046

== ENCOUNTER 2020-01-29 22:03 | Inpatient (IN) | payer MEDICARE, OTHER, SELFPAY ==
--- NOTE | ~2020-01-29 | XR_ITS ---
XR chest 1V portable DATE: 02/02/2020 06:51 INDICATION: Shortness of breath. Pneumonia. TECHNIQUE: Portable upright AP chest on 02/02/2020 at 0649 hours COMPARISON: 01/31/2020 portable AP chest at 0507 hours FINDINGS: Status post sternotomy. Cardiomegaly. Aortic calcification. There are extensive patchy consolidating bilateral pulmonary joints, which are more prominent central ly and in the lower lung zones, especially left lower lung. The differential diagnosis includes pulmo nary edema and/or pneumonia. No apparent pleural effusion. No pneumothorax. IMPRESSION: Prominent bilateral pulmonary infiltrates, substantially increased on the left and new on the right since 01/31/2020, suggesting pulmonary edema and/or pneumonia. Reviewed, dictated and finalized at location A. ECTOR PLUMBING IMPRESSION: Prominent bilateral pulmonary infiltrates, substantially increased on the left and new on the right since 01/31/2020, suggesting pulmonary edema a nd/or pneumonia.
--- NOTE | ~2020-01-29 | XR_ITS ---
XR chest 1V portable DATE: 02/02/2020 13:16 INDICATION: Dialysis catheter placement TECHNIQUE: Portable AP chest on 01/25/2020 at 1310 hours COMPARISON: 02/02/2020 portable AP chest at 0649 hours FINDINGS: There is interval placement of right internal jugular central venous catheter, the catheter tip overlying the superior cavoatrial junction approximately. No pneumothorax or pleural effusion is detected. Patchy bilateral pulmonary infiltrates are again noted, in addition to probable congestive changes. IMPRESSION: Right internal jugular central venous catheter placement, tip near superior cavoatrial ju nction Reviewed, dictated and finalized at location A. OR PREMIUM AUDITOR IMPRESSION: Right internal jugular central venous catheter placement, tip near superior cavoatrial junction
--- NOTE | ~2020-01-29 | XR_ITS ---
EXAMINATION: XR chest 1V portable EXAM DATE: 01/30/2020 12:25 INDICATION: Hypoxia. TECHNIQUE: Portable AP frontal chest x-ray was obtained. Comparison is made to prior examination from yesterday. FINDINGS: Again there is moderate amount of ill-defined left-sided acute airspace disease, could be a cute infectious process given asymmetry. Asymmetric edema less likely. There is small left pleural ef fusion. No pneumothorax. Sternotomy wires are present without findings to suggest sternal dehiscence. IMPRESSION: Moderate amount of ill-defined left mid and lower lung zone acute airspace disease uncha nged. Reviewed, dictated and finalized at location B. LOPE SEALER OPERATOR IMPRESSION: Moderate amount of ill-defined left mid and lower lung zone acute airspace disease unchanged.
--- NOTE | ~2020-01-29 | US_ITS ---
. EXAMINATION: US renal BI DATE: 02/01/2020 14:55 INDICATION: Acute kidney injury. TECHNIQUE: Multiple ultrasound grayscale images of the kidneys were obtained. COMPARISON: CT abdomen and pelvis 10/19/2017 FINDINGS: The right kidney measures 12.1 x 5.2 x 6.0 cm. The left kidney measures 11.7 x 5.9 x 5.7 cm. The kidn eys demonstrate normal parenchymal echogenicity. There is no hydronephrosis. The bladder is decompres sed. IMPRESSION: 1. Normal kidneys. No hydronephrosis. Reviewed, dictated and finalized at location A. ECTIVE SIGNAL INSTALLER HELPER
--- NOTE | ~2020-01-29 | XR_ITS ---
EXAMINATION: XR chest 1V portable DATE: 01/29/2020 23:01 INDICATION: Shortness of breath. TECHNIQUE: frontal view of the chest was obtained. COMPARISON: Chest radiograph dated 01/28/2020 FINDINGS: Increase in patchy airspace opacities now in the left mid and lower lung zones. Persistent small left pleural effusion with blunting at the costophrenic angle. Right lung remains clear. No pneumothorax or right-sided pleural effusion. Cardiomediastinal silhouette is normal. Median sternotomy wires and mediastinal surgical clips are seen, likely from prior coronary artery bypass grafting. The cardiomed iastinal silhouette is normal. Visualized bones and soft tissues are unremarkable. IMPRESSION: 1. Increased airspace opacities in the left mid and lower lung zones which could represent pneumonia, asymmetric pulmonary edema or atelectasis. 2. Small left pleural effusion. Reviewed, dictated and finalized at [facility]. PLATE STAMPING MACHINE OPERATOR IMPRESSION: 1. Increased airspace opacities in the left mid and lower lung zones which coul d represent pneumonia, asymmetric pulmonary edema or atelectasis. 2. Small left pleural effusion.
--- NOTE | ~2020-01-29 | XR_ITS ---
XR chest 1V portable DATE: 01/31/2020 06:45 INDICATION: Respiratory failure. Hypoxia. Shortness of breath. TECHNIQUE: Portable AP chest on 01/31/2020 at 0507 hours COMPARISON: 01/30/2020 portable AP chest at 1223 hours FINDINGS: Status post sternotomy. Again noted is patchy infiltrate in left mid and particularly lower lung zone, stable or mildly incre ased since 01/30/2020.. Minimal if any left pleural effusion. No right pleural effusion. Right lung a ppears essentially clear. Aortic calcification. Heart size is not optimally evaluated on AP projection because of magnification. IMPRESSION: Stable or mildly increased infiltrate in left mid and lower lung zones Reviewed, dictated and finalized at location A. BAGGER IMPRESSION: Stable or mildly increased infiltrate in left mid and lower lung zo willow
[2020-01-29 22:13] VITALS: BP 139/81; PULSE 113; RESP 38; TEMP 36.8; O2SAT 96
--- NOTE | 2020-01-29 22:19 | ECG_ITS ---
Measurements Intervals [place] Rate: 112 P: 62 [place]: 183 QRS: 28 QRSD: 97 T: 64 QT: 319 QTc: 437 Interpretive Statements SINUS TACHYCARDIA POSSIBLE LEFT ATRIAL ENLARGEMENT ANTEROSEPTAL INFARCT, AGE INDETERMINATE BORDERLINE ST-T WAVE ABNORMALITY- HIGH LATERAL LEADS ABNORMAL ECG Electronically Signed On 01-30-2020 7:26:17 INSPECTOR PLUG SEAM by Terry Hernandez D.O.
--- NOTE | 2020-01-29 22:21 | ED.SOB ---
HPI - SOB/Dyspnea General Chief Complaint: Shortness of Breath/Dyspnea Stated Complaint: sob Time Seen by Provider: 01/29/20 22:14 History of Present Illness HPI Narrative: 64 yo w/ h/o CHF and scleroderma presents to the ED for SOB. He reports SOb for the past 3 days. This is associated with lower extremity swelling. No CP pain, fever. History limited by medical condition Related Data Home Medications Medication Instructions Recorded Confirmed Januvia 100 mg PO DAILY 10/24/19 10/24/19 aspirin [Adult Low Dose Aspirin] 81 mg PO DAILY 10/24/19 10/24/19 famotidine 40 mg PO DAILY 10/24/19 10/24/19 fluticasone furoate 2 spray INTRANASAL DAILY 10/24/19 10/24/19 gabapentin 300 mg PO BID 10/24/19 10/24/19 glimepiride 4 mg PO DAILY 10/24/19 10/24/19 levothyroxine 75 mcg PO DAILY 10/24/19 10/24/19 losartan 50 mg PO DAILY 10/24/19 10/24/19 metoprolol succinate 50 mg PO DAILY 10/24/19 10/24/19 nifedipine 30 mg PO DAILY 10/24/19 10/24/19 omeprazole 20 mg PO DAILY 10/24/19 10/24/19 rosuvastatin 40 mg PO DAILY 10/24/19 10/24/19 tramadol 50 mg PO Q4H PRN 10/24/19 10/24/19 Tresiba U-100 Insulin 24 units SUBDERMAL DAILY 01/30/20 01/30/20 Allergies Allergy/AdvReac Type Severity Reaction Status Date / Time No Known Allergies Allergy Depression Uncoded 01/30/20 00:40 Review of Systems Review of Systems: ROS unobtainable: Yes unobtainable due to medical condition Constitutional: Constitutional: Denies fever(s) Cardiovascular: Cardiovascular: Denies chest pain Respiratory: Respiratory: Reports cough and Reports dyspnea PMF Past Medical History Medical History CKD (chronic kidney disease) Congestive heart failure Coronary artery disease Hyperlipidemia Hypertension Hypothyroidism Myocardial infarction Raynauds disease Scleroderma Small bowel obstruction Type 2 diabetes mellitus Surgical History Surgical History H/O cardiac catheterization History of appendectomy History of bilateral carpal tunnel release History of tonsillectomy Hx of CABG 2018 Family History Family History Mother Colon cancer Father Lung cancer Social History Social History Social History: Mr. Benoit lives at home with his . He is independent in his ADLs. He has 2 adult children. He is retired from the [employer]. His PCP is Dr. Sanz at [facility]. He designates his as his surrogate decision maker and he would like to be a full code. Smoking packs per day: 1.5 Smoking cigarettes per day: 30.0 Years smoked: 43 Smoking pack-years: 64.50 Smoking status: Former smoker Tobacco type: cigarettes Smoking end date: 03/07/11 Alcohol intake: former Substance use: never Substance use type: does not use Spiritual care concerns: No Exam Const: General: alert and ill appearing acutely and chronically Nutritional Appearance: well nourished Orientation/consciousness: patient oriented x3 Other: Mild respiratory distress HENMT: Head: normal to inspection Chest: Chest palpation & inspection: normal inspection of the chest Resp: Effort & Inspection: labored and tachypneic Auscultation: crackles Cardio: Rate: tachycardic Rhythm: regular rhythm GI: GI Palp: Yes Soft to palpation and No Tenderness to palpation present (GI) Other: abdominal wall edema Skin: General skin exam: normal color Neuro: General: patient oriented x3 and moves all extremities Speech: normal speech Extrem: General: edema bilateral (2+) Course Vital Signs Vital signs: Vital Signs Temperature 36.8 C 01/29/20 22:13 Pulse Rate 113 H 01/29/20 22:13 Respiratory Rate 38 H 01/29/20 22:13 Blood Pressure 139/81 01/29/20 22:13 Pulse Oximetry 96 01/29/20 22:13 Temperature 37.6 C 01/30/20 01:
[2020-01-29 22:30] VITALS: PULSE 112; RESP 36; O2SAT 97
[2020-01-29 22:37] LABS: Hematocrit 35.2 % (42.0-52.0); Hemoglobin 10.7 g/dL (14.0-18.0); Mean Corpuscular HGB Conc 30.4 g/dl (32-36); Mean Corpuscular Hemoglobin 24.4 pg (26-34); Mean Corpuscular Volume 80.4 fl (80-100); Mean Platelet Volume 10.3 fl (7.4-10.4); Platelet Count Result 198 k/mm3 (150-375); Red Blood Count 4.38 M/mm3 (4.6-6.20); Red Cell Distribution Width 17.9 % (11.5-14.5)
[2020-01-29] MEDS: NITROGLYCERIN OINTMENT 1 INCH DOSE 0.5 INCH TRANSDERM (22:39)
[2020-01-29 22:46] LABS: INR 1.5
[2020-01-29 22:47] LABS: Partial Thromboplastin Time 40.3 SECONDS (22.3-36.8)
[2020-01-29 22:50] VITALS: BP 127/71; PULSE 113; RESP 36; O2SAT 96
[2020-01-29] MEDS: FUROSEMIDE INJ 100 MG/10 ML VIAL 80 MG IV PUSH (22:50)
[2020-01-29 22:57] LABS: Anion Gap 14 mmol/L (8-16); Blood Urea Nitrogen 38 mg/dL (9-20); Calcium 8.4 mg/dL (8.4-10.2); Carbon Dioxide 20 mmol/L (22-30); Chloride 92 mmol/L (98-107); Estimated CRCL calculation 46 ml/min; Estimated Glomerular Filt Rate 44; Glucose 271 mg/dL (75-110); Potassium 5.1 mmol/L (3.4-5.0); Sodium 126 mmol/L (137-145)
[2020-01-29 22:59] LABS: Band Neutrophils Percent 28 % (0-6); Lymphocytes Absolute Manual 0.16 K/mm3 (1.1-4.5); Monocytes Absolute Manual 0.64 K/mm3 (0.1-0.90); Monocytes Percent Manual 4 % (3-9); Neutrophils Percent Manual 67 % (46-73); Total Cells Counted 100
[2020-01-29 23:00] LABS: Hypochromasia 1+ (NORMAL); Platelet Estimate Adequate (Adequate)
[2020-01-29 23:07] LABS: Alveolar/Arterial O2 Gradient 186.7 mmHg; Base Excess ABG -3.4 mEq/l (+/-2.0); Fractional Inspired Oxygen 40 %; HCO3 ABG 18.8 mEq/l (22.0-26.0); Oxygen Content ABG 15.2 %vol (16.0-22.0); Oxygen Saturation ABG 95.3 % (95.0-100.0); Oxyhemoglobin 93.7 % THb (90.0-100.0); PCO2 ABG 25.6 mmHg (35.0-45.0); PO2 ABG 69.1 mmHg (80.0-100.0); PO2 FiO2 Ratio Arterial Blood 1.73 %; Total Hemoglobin 11.5 g/dL (12.0-18.0); pH ABG 7.483 (7.350-7.450)
[2020-01-29 23:08] LABS: Device NON-INVASIVE VENT; Non-Invasive Expiratory Pressure 6 CMH2O; Non-Invasive Inspiratory Pressure 12 CMH2O; Non-Invasive Vent Rate 4 /MIN; Site Drawn RIGHT BRACHIAL
[2020-01-29 23:13] LABS: NT Pro B Type Natriuretic Pept 33400 PG/ML (5-100); Troponin I 0.414 ng/mL (0.000-0.034)
[2020-01-30] VITALS (18 sets, daily range): BP systolic 93–124; BP diastolic 45–63; PULSE 59–113; RESP 18–40; TEMP 36.2–37.6; O2SAT 88–99; BMI 25.1
--- NOTE | 2020-01-30 02:08 | ADMGEN ---
This patient, Stephen Benoit, was admitted to IMU Room 204-01. Patient/family oriented to hospital policies and general routines including ID bracelet, bed and alarms, visiting hours, pain management, procedures, bathroom and other care routines, personal items, smoking policy, room service/diet, and visiting hours. Information on how to activate the Rapid Response Team has been discussed. Patient/Family are encouraged to report perceived risks to care and to ask questions if they do not understand what they are told or what they should do.
[2020-01-30 02:46] LABS: Reflex Lactic Acid Yes or No Add Lactic
--- NOTE | 2020-01-30 03:19 | PM.IMHP ---
H&P: HPI History of Present Illness Date/Time: 01/30/20 03:19 Chief complaint: Respiratory failure Narrative: This is a 63 year old male with a history of scleroderma, type 2 diabetes mellitus with nephropathy, HTN, HLD, and CAD s/p CABG in 2018 who presented to the hospital with a complaint of increased shortness of breath for about the past 3 days. He reports associated nonproductive hacking cough but denies any fever, wheezing, chest pain, or chills. The patient agrees that he is more swollen than usual. He has been taking his medications as prescribed. The patient was evaluated emergency room this evening and was found to have diffuse edema. Chest x-ray demonstrated bilateral pulmonary edema. [place] [address] which is 10 times above his last BNP from this past summer. He was also found to have leukocytosis with a white cell count of 16,000, hyponatremia with a serum sodium of 126, Elevated troponin of 0.414, and an elevated lactic acid of 3.0. His ABG showed acute respiratory failure with hypoxemia. The patient was initiated on BiPAP in the emergency room and treated with IV antibiotics and Lasix therapy. He was swabbed for COVID-19. We been asked to admit the patient hospital for further care and he has no other complaints at this time. Review of Systems Review of Systems: All systems reviewed & are unremarkable except as noted in HPI and below PMFSH Past Medical History Medical History CKD (chronic kidney disease) Congestive heart failure Coronary artery disease Hyperlipidemia Hypertension Hypothyroidism Myocardial infarction Raynauds disease Scleroderma Small bowel obstruction Type 2 diabetes mellitus Surgical History Surgical History H/O cardiac catheterization History of appendectomy History of bilateral carpal tunnel release History of tonsillectomy Hx of CABG 2018 Family History Family History Mother Colon cancer Father Lung cancer Social History Social History Social History: Mr. Benoit lives at home with his . He is independent in his ADLs. He has 2 adult children. He is retired from the [employer]. His PCP is Dr. Sanz at [facility]. He designates his as his surrogate decision maker and he would like to be a full code. Smoking packs per day: 1.5 Smoking cigarettes per day: 30.0 Years smoked: 43 Smoking pack-years: 64.50 Smoking status: Former smoker Tobacco type: cigarettes Smoking end date: 03/07/11 Alcohol intake: former Substance use: never Substance use type: does not use Spiritual care concerns: No Meds Home Medications and Allergies Home Medications Medication Instructions Recorded Confirmed Type Januvia 100 mg PO DAILY 10/24/19 10/24/19 History aspirin [Adult Low Dose Aspirin] 81 mg PO DAILY 10/24/19 10/24/19 History famotidine 40 mg PO DAILY 10/24/19 10/24/19 History fluticasone furoate 2 spray INTRANASAL DAILY 10/24/19 10/24/19 History gabapentin 300 mg PO BID 10/24/19 10/24/19 History glimepiride 4 mg PO DAILY 10/24/19 10/24/19 History levothyroxine 75 mcg PO DAILY 10/24/19 10/24/19 History losartan 50 mg PO DAILY 10/24/19 10/24/19 History metoprolol succinate 50 mg PO DAILY 10/24/19 10/24/19 History nifedipine 30 mg PO DAILY 10/24/19 10/24/19 History omeprazole 20 mg PO DAILY 10/24/19 10/24/19 History rosuvastatin 40 mg PO DAILY 10/24/19 10/24/19 History tramadol 50 mg PO Q4H PRN 10/24/19 10/24/19 History dexamethasone 6 mg PO DAILY #7 tablet 10/26/19 Rx Tresiba U-100 Insulin 24 units SUBDERMAL DAILY 01/30/20 01/30/20 History Allergies Allergy/AdvReac Type Severity Reaction Status Date / Time No Known Allergies Allergy Verified 01/30/20 13:59 Vital Signs Vital Signs - 24 hr 01/29/20 2
[2020-01-30 03:34] LABS: Lactic Acid 3.1 mmol/L (0.7-2.1)
[2020-01-30 03:35] LABS: Anion Gap 12 mmol/L (8-16); Blood Urea Nitrogen 41 mg/dL (9-20); Calcium 8.1 mg/dL (8.4-10.2); Carbon Dioxide 23 mmol/L (22-30); Chloride 92 mmol/L (98-107); Estimated CRCL calculation 34 ml/min; Estimated Glomerular Filt Rate 30; Glucose 302 mg/dL (75-110); Sodium 127 mmol/L (137-145)
--- NOTE | 2020-01-30 04:33 | ECG_ITS ---
Measurements Intervals [place] Rate: 104 P: 50 TX: 163 QRS: 50 QRSD: 105 T: 66 QT: 338 QTc: 445 Interpretive Statements SINUS TACHYCARDIA FREQUENT VENTRICULAR PREMATURE COMPLEXES POSSIBLE LEFT ATRIAL ENLARGEMENT INCOMPLETE RIGHT BUNDLE BRANCH BLOCK ANTEROSEPTAL INFARCT, AGE INDETERMINATE BORDERLINE ST-T WAVE ABNORMALITY- HIGH LATERAL LEADS BASELINE WANDER- I, II, III, AVR, AVL, AVF ABNORMAL ECG Electronically Signed On 01-30-2020 12:13:01 HOTEL YARDPERSON by Terry Hernandez D.O.
[2020-01-30 06:13] LABS: Add Urine Microscopic? YES; Amorphous Sediment Urine Few; Appearance Urine Cloudy (Clear); Bacteria Urine Trace /hpf; Bilirubin Urine Negative (Negative); Blood Urine 2+ (Negative); Color Urine Yellow (Yellow); Glucose Urine UA 1+ mg/dL (Negative); Granular Casts Urine 15-19 /lpf; Ketones Urine Negative (Negative); Leukocyte Esterase Ur Negative LEU/UL (Negative); Mucus Urine Rare /lpf; Nitrate Urine Negative (Negative); Protein Urine 3+ mg/dL (Negative); Specific Grav Ur 1.014 (1.001-1.035); Urobilinogen Urine Negative mg/dL (<2.0); WBC Urine 0-3 /hpf
[2020-01-30 07:47] LABS: Influenza Control Positive
[2020-01-30] MEDS: ENOXAPARIN 40 MG/0.4 ML SYRINGE SUB-Q (08:45)
[2020-01-30] MEDS: FUROSEMIDE INJ 40 MG/4 ML VIAL IV PUSH (08:45)
[2020-01-30 09:21] LABS: Glucose Point of Care 200 (65-105)
[2020-01-30 09:33] LABS: Basophils Percent Auto 0.2 % (0.2-1.2); Hematocrit 36.3 % (42.0-52.0); Immature Granulocyte Absolute 0.37 K/mm3 (0.00-0.031); Immature Granulocyte Percent A 3.2 % (0-0.5); Immature Platelet Fraction Pct 5.4 % (0.9-11.2); Lymphocytes Absolute Auto 0.35 K/mm3 (0.9-3.2); Mean Corpuscular HGB Conc 30.3 g/dl (32-36); Mean Corpuscular Hemoglobin 24.2 pg (26-34); Mean Platelet Volume 10.9 fl (7.4-10.4); Monocytes Absolute Auto 0.8 K/mm3 (0.1-0.6); Monocytes Percent Auto 6.8 % (2.6-8.5); Neutrophils Absolute Auto 10.2 K/mm3 (1.3-6.7); Neutrophils Percent Auto 86.8 % (45.5-73.1); Platelet Count Result 204 k/mm3 (150-375); Red Blood Count 4.54 M/mm3 (4.6-6.20); Red Cell Distribution Width 17.9 % (11.5-14.5); White Blood Count 11.7 K/mm3 (4.5-10.0)
[2020-01-30 09:44] LABS: Anion Gap 13 mmol/L (8-16); Blood Urea Nitrogen 48 mg/dL (9-20); Calcium 8.1 mg/dL (8.4-10.2); Carbon Dioxide 22 mmol/L (22-30); Chloride 91 mmol/L (98-107); Estimated CRCL calculation 26 ml/min; Estimated Glomerular Filt Rate 22; Glucose 269 mg/dL (75-110); Magnesium 1.3 mg/dL (1.6-2.3); Sodium 126 mmol/L (137-145)
[2020-01-30 10:03] LABS: Potassium 4.7 mmol/L (3.4-5.0)
[2020-01-30 10:31] LABS: Thyroid Stimulating Hormone Reflex 0.988 uIU/mL (0.465-4.68)
--- NOTE | 2020-01-30 11:27 | PM.IMPN ---
Progress Note: A&P Assessment and Plan (1) Acute respiratory failure with hypoxemia: Code(s): J96.01 - Acute respiratory failure with hypoxia Status: Acute Assessment and Plan: The patient may have an underlying interstitial lung disease pattern from scleroderma along with superimposed acute process mostly in the LLL. Possibly chronic diastolic heart failure. Patient has been initiated on BiPAP. Continue IV antibiotics for possible superimposed pneumonia. Continue bronchodilators. Wean off of BiPAP when possible. RT assess and treat. Repeat ABG and CXR. ABG 7. on bipap. CXR showing no change. Wean BiPAP as tolerated. (2) Acute on chronic diastolic heart failure: Code(s): I50.33 - Acute on chronic diastolic (congestive) heart failure Status: Acute Assessment and Plan: CXR showing Left lower airspace disease. BNP 33K. IV Lasix therapy started with poor response and rising Cr. Echo ordered. NPO. COVID testing underway (he was positive on 10/24/19). (3) Severe sepsis: Code(s): A41.9 - Sepsis, unspecified organism; R65.20 - Severe sepsis without septic shock Status: Acute Assessment and Plan: On admission with tachycardia, tachypnea, leukocytosis, and elevated lactic acid of 3.0. Source of sepsis may be pulmonary. UA noted and not c/w UTI. Continue IV antibiotics. Monitor vital signs and urine output closely. Monitor acid-base status. Blood cultures pending. BUN 59 and Cr 3.8 now. Lactic acid better. IV fluids started. Potassium back up to 5.2. Repeat later today. BCx with gram positive cocci in chains so Vanco added. (4) Leukocytosis: Qualifiers: Leukocytosis type: unspecified Qualified Code(s): D72.829 - Elevated white blood cell count, unspecified Code(s): D72.829 - Elevated white blood cell count, unspecified Status: Acute Assessment and Plan: May be secondary to superimposed pneumonia and sepsis. WBC better. Monitor CBCD (5) Anasarca: Code(s): R60.1 - Generalized edema Status: Acute Assessment and Plan: Appears to be secondary to systemic sclerosis and acute heart failure. Consider nephrotic syndrome with high urine protein. Check LFTs and urine protein. Monitor fluid status. (6) Hyponatremia: Code(s): E87.1 - Hypo-osmolality and hyponatremia Status: Acute Assessment and Plan: The patient's Na 126 on admission and about the same on repeat. Could be intravascularly dry. Check urine Na. (7) Hyperkalemia: Code(s): E87.5 - Hyperkalemia Status: Acute Assessment and Plan: Mild hyperkalemia at 5.1 which may be secondary to metabolic acidosis. Repeat potassium has normallized. Follow. (8) Chronic anemia: Code(s): D64.9 - Anemia, unspecified Status: Chronic Assessment and Plan: Appears to be anemia of chronic disease. Hgb better here than baseline. Dehydrated? No signs of acute blood loss tonight. Monitor H&H, transfuse p.r.n.. (9) Chronic renal failure, stage 3a: Code(s): N18.31 - Chronic kidney disease, stage 3a Status: Chronic Assessment and Plan: Patient with JOE now. Cr 1.6 on admisison but has climbed to 2.9. Lasix held. Avoid nephrotoxin agents. Renally dose medications. UOP poor. Monitor urine output. (10) Suspected 2019 novel coronavirus infection: Code(s): Z20.828 - Contact with and (suspected) exposure to other viral communicable diseases Status: Acute Assessment and Plan: Patient has been swab for COVID-19. Continue droplet isolation. Continue supportive care. COVID-19 result pending (11) Elevated lactic acid level: Code(s): R79.89 - Other specified abnormal findings of blood chemistry Status: Acute Assessment and Plan: LA 3.0 which may be secondary to hypoperfusion versus sepsis. Repat essentially no
[2020-01-30 11:57] LABS: Glucose Point of Care 224 (65-105)
[2020-01-30 12:01] LABS: Alveolar/Arterial O2 Gradient 245.4 mmHg; Base Excess ABG -2.7 mEq/l (+/-2.0); Fractional Inspired Oxygen 50 %; Oxygen Content ABG 15.1 %vol (16.0-22.0); Oxygen Saturation ABG 96.6 % (95.0-100.0); Oxyhemoglobin 95.1 % THb (90.0-100.0); PCO2 ABG 28.2 mmHg (35.0-45.0); PO2 ABG 79.4 mmHg (80.0-100.0); PO2 FiO2 Ratio Arterial Blood 1.59 %; Total Hemoglobin 11.2 g/dL (12.0-18.0); pH ABG 7.469 (7.350-7.450)
[2020-01-30 12:02] LABS: Device NON-INVASIVE VENT; Modified Allen's Test Pass; Non-Invasive Expiratory Pressure 6 CMH2O; Non-Invasive Inspiratory Pressure 12 CMH2O; Non-Invasive Vent Rate 4 /MIN; Site Drawn RIGHT RADIAL
[2020-01-30] MEDS: INSULIN ASPART (*BKC) 100 UNITS/ML SUB-Q (13:09)
[2020-01-30] MEDS: MAGNESIUM SULF 1 GM/D5W 100 ML 1 GM/100 ML BAG IVPB (13:09)
--- NOTE | 2020-01-30 13:47 | PM.CNCAR ---
Assessment and Plan Assessment and plan (1) Chronic diastolic (congestive) heart failure: Code(s): I50.32 - Chronic diastolic (congestive) heart failure Status: Acute Assessment and Plan: In my opinion, this patient is not in significant [place] [address]. Many things can cause an elevated BNP including underlying lung disease and pneumonia. If anything I think he is likely dry. Will DC further furosemide. Will start him on IV fluids at 75 cc an hour. Repeat chest x-ray tomorrow. Discontinue nitroglycerin paste. (2) Elevated troponin: Code(s): R77.8 - Other specified abnormalities of plasma proteins Status: Acute Assessment and Plan: Unlikely related to acute coronary syndrome and most likely secondary to type 2 infarction. Continue aspirin, statin, metoprolol as blood pressure will allow. Hold losartan for now given acute renal failure. Continue to trend troponins. Repeat EKG tomorrow (3) Severe sepsis: Code(s): A41.9 - Sepsis, unspecified organism; R65.20 - Severe sepsis without septic shock Status: Acute Assessment and Plan: On antibiotics. (4) Hypertension: Qualifiers: Hypertension type: essential hypertension Qualified Code(s): I10 - Essential (primary) hypertension Code(s): I10 - Essential (primary) hypertension Status: Chronic Assessment and Plan: A bit hypotensive at present (5) Scleroderma: Code(s): M34.9 - Systemic sclerosis, unspecified Status: Chronic (6) Acute on chronic renal failure: Code(s): N17.9 - Acute kidney failure, unspecified; N18.9 - Chronic kidney disease, unspecified Status: Acute Assessment and Plan: Likely intravascularly dry (7) Hypomagnesemia: Code(s): E83.42 - Hypomagnesemia Status: Acute Assessment and Plan: Will replace with an additional 2 more g of IV magnesium History of Present Illness History of Present Illness Consult date/time: 01/30/20 13:47 Requesting physician: Jose L Alas MD Consult reason: congestive heart failure Reason For Visit: Respiratory failure Narrative: Date of service 01/30/20 Reason for consultation: Positive troponins, CHF History: Patient is 63-year-old male patient Dr. Pedroza who has history of diabetes, scleroderma, CAD history of CABG in 2018. He was here 3 months ago because of Coronavirus and respiratory failure. At that time his BN P was around 3000. Echocardiogram showed normal ejection fraction and grade 2 diastolic dysfunction. He presented to the hospital because of cough but no fevers or chills. There is a thought the patient was significantly more swollen and had diffuse edema. Chest x-ray showed left-sided effusions consistent and infiltr[place] [address]. Sodium was low also white count 76178. Troponin was initially elevated and has gone to level 1.64. Currently on BiPAP and receiving antibiotics. Did give a dose of Lasix the is in acute renal failure and creatinine is worsening. He currently denies any chest pain, syncope, presyncope, paroxysmal nocturnal dyspnea, orthopnea. Review of Systems Review of Systems: All systems reviewed & are unremarkable except as noted in HPI and below Constitutional: Constitutional: Reports weakness Eyes: Eyes: Denies blurry vision ENT: Reports Normal hearing present Cardiovascular: Cardiovascular: Denies chest pain Respiratory: Respiratory: Reports dyspnea Gastrointestinal: Gastrointestinal: Denies abdominal pain Genitourinary: Genitourinary: Denies dysuria Musculoskeletal: Musculoskeletal: Denies neck pain Integumentary/Breasts: Skin/Breast: Denies dry skin Neurologic: Denies headache(s) Psychiatric: Psychiatric: Denies anxiety Endocrine: Endocrine: Denies fatigue Hematologic/Lymphatic: Hematologic/Lymphatic: Denies easy bleeding Allergic/Immunologic: Allergic/Immunologic: Denies
--- NOTE | 2020-01-30 15:12 | P.CONNP_ITS ---
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 - early sepsis/possible infection (COVID testing pending) - prerenal factors(?) - possible all of the above culminating into ATN * agree with trial of IVFs as respiratory status tolerateds * follow-up on urne electrolytes - add urine * check renal ultrasound * follow trend of repeat labs and UOP * he remains at risk for requiring renal replacement therapy/dialysis (2) Chronic renal failure, stage 3a: Code(s): N18.31 - Chronic kidney disease, stage 3a Status: Chronic Assessment and Plan: * baseline creatinine runs ~ 1.4 - 1.5mg/dl * presumably due to hypertension, diabetes, and vascular disease (3) Sepsis: Code(s): A41.9 - Sepsis, unspecified organism Status: Acute Assessment and Plan: * as noted on admission with tachycardia, tachypnea, leukocytosis, and lactic acidosis * source not clear - pneumonia?? * on antibiotics * follow culture data * follow hemodynamics (4) Hyponatremia: Code(s): E87.1 - Hypo-osmolality and hyponatremia Status: Acute Assessment and Plan: * unclear if hypervolemic versus hypovolemic given confounding factors * his liver issues are also likely playing a role * follow-up on urine electroltyes * follow trend with trial of IVFs (5) Anasarca: Code(s): R60.1 - Generalized edema Status: Acute Assessment and Plan: * etiology? 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 History of Present Illness Reason for Consult Consult date: 01/30/20 Reason for consult: acute renal failure (on chronic kidney disease) Chief Complaint Chief complaint: Respiratory failure History of Present Illness Narrative: The patient is a 63 year old male with a past medical history as outlined below Who presented to [facility] Emergency room with complaints of shortness of breath. The shortness of breath seem to start may be 4 - 5 days ago but seems to have progressively worsened in the last three days. Associated symptoms include a nonproductive cough but no overt fevers, chills, wheezing, or chest pains. He has also noted that he seems to be little bit more swollen/edematous than usual with no significant change in his diet or medications. Due to these issues /s ymptoms, he presented to the emergency room for further evaluation. Workup
--- NOTE | 2020-01-30 15:12 | PM.CNNEP ---
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 - early sepsis/possible infection (COVID testing pending) - prerenal factors(?) - possible all of the above culminating into ATN agree with trial of IVFs as respiratory status tolerateds follow-up on urne electrolytes - add urine check renal ultrasound follow trend of repeat labs and UOP he remains at risk for requiring renal replacement therapy/dialysis (2) Chronic renal failure, stage 3a: Code(s): N18.31 - Chronic kidney disease, stage 3a Status: Chronic Assessment and Plan: baseline creatinine runs ~ 1.4 - 1.5mg/dl presumably due to hypertension, diabetes, and vascular disease (3) Sepsis: Code(s): A41.9 - Sepsis, unspecified organism Status: Acute Assessment and Plan: as noted on admission with tachycardia, tachypnea, leukocytosis, and lactic acidosis source not clear - pneumonia?? on antibiotics follow culture data follow hemodynamics (4) Hyponatremia: Code(s): E87.1 - Hypo-osmolality and hyponatremia Status: Acute Assessment and Plan: unclear if hypervolemic versus hypovolemic given confounding factors his liver issues are also likely playing a role follow-up on urine electroltyes follow trend with trial of IVFs (5) Anasarca: Code(s): R60.1 - Generalized edema Status: Acute Assessment and Plan: etiology? 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 History of Present Illness Reason for Consult Consult date: 01/30/20 Reason for consult: acute renal failure (on chronic kidney disease) Chief Complaint Chief complaint: Respiratory failure History of Present Illness Narrative: The patient is a 63 year old male with a past medical history as outlined below Who presented to [facility] Emergency room with complaints of shortness of breath. The shortness of breath seem to start may be 4 - 5 days ago but seems to have progressively worsened in the last three days. Associated symptoms include a nonproductive cough but no overt fevers, chills, wheezing, or chest pains. He has also noted that he seems to be little bit more swollen/edematous than usual with no significant change in his diet or medications. Due to these issues /symptoms, he presented to the emergency room for further evaluation. Workup and evaluation in the emergency room demonstrated the patient to have relative hypotension considering that he has a diagnosis of hypertension with with exam findings significant for diffuse edema/anasarca along with Mild respiratory distress secondary to his shortness of breath. Routine blood test demonstrated a significantly elevated BNP in comparison to his baseline and he also had a elevated white blood cell count, hypo
[2020-01-30 16:04] LABS: Lactic Acid Reflex 2.4 mmol/L (0.7-2.1)
[2020-01-30 16:05] LABS: Alanine Aminotransferase 15 U/L (4-50); Albumin Level 3.5 g/dL (3.5-5.1); Alkaline Phosphatase 52 U/L (38-126); Anion Gap 12 mmol/L (8-16); Aspartate Amino Transferase 35 U/L (17-59); Bilirubin,Total 0.5 mg/dL (0.2-1.3); Blood Urea Nitrogen 59 mg/dL (9-20); Carbon Dioxide 22 mmol/L (22-30); Chloride 92 mmol/L (98-107); Estimated CRCL calculation 20 ml/min; Estimated Glomerular Filt Rate 16; Glucose 256 mg/dL (75-110); Potassium 5.2 mmol/L (3.4-5.0); Sodium 126 mmol/L (137-145)
[2020-01-30 16:57] LABS: Glucose Point of Care 179 (65-105)
[2020-01-30] MEDS: ASPIRIN 81 MG CHEWABLE TABLET PO (17:20)
[2020-01-30] MEDS: ROSUVASTATIN 10 MG TABLET 40 MG PO (17:20)
[2020-01-30] MEDS: SODIUM CHLORIDE 0.9% IV 1,000 ML 100 ML IV CONT (17:21)
[2020-01-30] MEDS: MAGNESIUM SULF 2 GM/WATER 50ML 2 GM/50 ML BAG IVPB (17:21)
[2020-01-30 18:50] LABS: Reflex Lactic Acid Yes or No Add Lactic
[2020-01-30 21:14] LABS: Potassium 5.1 mmol/L (3.4-5.0)
[2020-01-30 21:15] LABS: SARS-CoV-2 RNA PCR Positive
[2020-01-30 21:17] LABS: Lactic Acid 1.4 mmol/L (0.7-2.1)
[2020-01-30] MEDS: IPRATROPIUM BR 0.02% INH SOLN 0.5 MG/2.5 ML VIAL INHALATION (23:05)
[2020-01-30] MEDS: ALBUTEROL SULFATE NEB 2.5 MG/0.5 ML INH 5 MG INHALATION (23:05)
--- NOTE | 2020-01-30 23:30 | PC.NURSE ---
Medication given. Not by me. I am not sure what time it was given.
[2020-01-31] VITALS (27 sets, daily range): BP systolic 83–99; BP diastolic 37–51; PULSE 96–116; RESP 20–28; TEMP 35.7–36.6; O2SAT 91–99
--- NOTE | 2020-01-31 03:42 | ECHO_ITS ---
Patient Info Name: Stephen Benoit Age: 64 years : 1955 Gender: Male Ht: 72 in Wt: 185 lbs BSA: 2.07 m2 HR: 112 bpm BP: 116 / 58 mmHg Heart Rhythm: Sinus Rhythm Technical Quality: Fair Exam Date: 01/31/2020 10:04 AM Exam Location: [facility] Pulmonary Patient Status: Inpatient Admit Date: 01/29/2020 Staff Ordering Physician: Jose L Alas MD Blanket Binder: Estefania Mckeon RDCS Attending Provider: Landry Jacob MD Referring Physician: Evette MUELLER; Exam Type: CA echo dop color flow w con Study Info Complete two-dimensional, color flow and Doppler transthoracic echocardiogram is performed with contrast to opacify the left ventricle and to improve the deliniation of the left ventricle endocardial borders. Contrast/Agitated Saline Contrast/Ag. Saline: Definity Amount: 4.00 ml Summary 1. Left ventricular chamber dimension is mildly enlarged. 2. Left ventricular systolic function is normal, estimated at 55-60%. 3. Definity contrast injected to improve visualization. 4. Left atrial chamber dimension is mildly enlarged. 5. No significant valvular disease. Left Ventricle Left ventricular chamber dimension is mildly enlarged. Left ventricular systolic function is normal, estimated at 55-60%. The left ventricular diastolic function is grade I diastolic dysfunction. Definity contrast injected to improve visualization. Right Ventricle Right ventricular chamber dimension is normal. Left Atria Left atrial chamber dimension is mildly enlarged. Right Atria Right atrial chamber dimension is normal. Aortic Valve The aortic valve is normal. Pulmonic Valve The pulmonic valve is normal. Mitral Valve The mitral valve has normal leaflets. The mitral valve annulus is mildly calcified. Tricuspid Valve The tricuspid valve leaflets are normal. Pericardium/Pleural The pericardium appears normal. Aorta The aortic root size at the sinus of Valsalva is normal. Left Ventricular Outflow Tract Name Value Normal LVOT 2D LVOT Diameter 1.94 cm LVOT Doppler LVOT Peak Gradient 6 mmHg LVOT Mean Gradient 3 mmHg LVOT VTI 17.20 cm LVOT VTI/AV VTI Ratio 0.80 LVOT Stroke Volume 50.84 ml LVOT CO 6.48 l/min LVOT CI 3.14 L/min/m2 Pulmonic Valve Name Value Normal PV Doppler PV Peak Gradient 5 mmHg Mitral Valve Name Value Normal MV Doppler MV Dec
[2020-01-31 06:00] LABS: Basophils Percent Auto 0.3 % (0.2-1.2); Hematocrit 29.7 % (42.0-52.0); Hemoglobin 8.9 g/dL (14.0-18.0); Immature Granulocyte Absolute 0.08 K/mm3 (0.00-0.031); Immature Platelet Fraction Pct 6.1 % (0.9-11.2); Lymphocytes Absolute Auto 0.31 K/mm3 (0.9-3.2); Lymphocytes Percent Auto 4.1 % (18.3-44.2); Mean Corpuscular Hemoglobin 23.9 pg (26-34); Mean Corpuscular Volume 79.8 fl (80-100); Mean Platelet Volume 11.8 fl (7.4-10.4); Monocytes Absolute Auto 0.8 K/mm3 (0.1-0.6); Neutrophils Absolute Auto 6.5 K/mm3 (1.3-6.7); Neutrophils Percent Auto 84.6 % (45.5-73.1); Platelet Count Result 174 k/mm3 (150-375); Red Blood Count 3.72 M/mm3 (4.6-6.20); Red Cell Distribution Width 17.9 % (11.5-14.5); White Blood Count 7.6 K/mm3 (4.5-10.0)
[2020-01-31 06:14] LABS: Potassium 4.7 mmol/L (3.4-5.0)
[2020-01-31 06:19] LABS: Hemoglobin A1C 8.1 % (<5.7)
--- NOTE | 2020-01-31 06:28 | PCRCNOTE ---
Window of time for administration has passed. See next scheduled administration.
[2020-01-31 06:31] LABS: Alveolar/Arterial O2 Gradient 158.3 mmHg; Base Excess ABG -6.2 mEq/l (+/-2.0); Fractional Inspired Oxygen 40 %; HCO3 ABG 18.2 mEq/l (22.0-26.0); Oxygen Content ABG 13.8 %vol (16.0-22.0); Oxygen Saturation ABG 96.8 % (95.0-100.0); Oxyhemoglobin 95.3 % THb (90.0-100.0); PCO2 ABG 31.8 mmHg (35.0-45.0); PO2 ABG 90.3 mmHg (80.0-100.0); PO2 FiO2 Ratio Arterial Blood 2.26 %; Total Hemoglobin 10.2 g/dL (12.0-18.0); pH ABG 7.375 (7.350-7.450)
[2020-01-31 06:32] LABS: Device BIPAP; Expiratory Pressure 6 cmH2O; Inspiratory Pressure 12 cmH2O; Modified Allen's Test Pass; Site Drawn RIGHT RADIAL
[2020-01-31 06:50] LABS: Alanine Aminotransferase 21 U/L (4-50); Albumin Level 2.9 g/dL (3.5-5.1); Alkaline Phosphatase 40 U/L (38-126); Anion Gap 15 mmol/L (8-16); Aspartate Amino Transferase 58 U/L (17-59); Bilirubin,Total 0.4 mg/dL (0.2-1.3); Blood Urea Nitrogen 76 mg/dL (9-20); Calcium 7.3 mg/dL (8.4-10.2); Carbon Dioxide 20 mmol/L (22-30); Chloride 91 mmol/L (98-107); Estimated CRCL calculation 16 ml/min; Estimated Glomerular Filt Rate 12; Glucose 168 mg/dL (75-110); Magnesium 2.2 mg/dL (1.6-2.3); Phosphorus 7.6 mg/dL (2.5-4.5); Sodium 126 mmol/L (137-145)
--- NOTE | 2020-01-31 08:00 | ECG_ITS ---
Measurements Intervals [place] Rate: 107 P: 24 PA: 176 QRS: 43 QRSD: 108 T: 48 QT: 333 QTc: 444 Interpretive Statements SINUS TACHYCARDIA ATRIAL PREMATURE COMPLEX INCOMPLETE RIGHT BUNDLE BRANCH BLOCK CANNOT RULE OUT SEPTAL INFARCT, AGE INDETERMINATE BORDERLINE ST-T WAVE ABNORMALITY- HIGH LATERAL LEADS ABNORMAL ECG Electronically Signed On 01-31-2020 16:10:56 CREW PERSON by Terry Hernandez D.O.
[2020-01-31 08:28] LABS: Creatinine Urine 183.3 mg/dL
[2020-01-31 08:35] LABS: Sodium Urine Random 39 meq/L
[2020-01-31 08:36] LABS: Glucose Point of Care 134 (65-105)
[2020-01-31 08:38] LABS: Creatinine Urine 184.3 mg/dL
[2020-01-31] MEDS: ENOXAPARIN 40 MG/0.4 ML SYRINGE SUB-Q (08:40)
[2020-01-31] MEDS: ROSUVASTATIN 10 MG TABLET 40 MG PO (08:40)
[2020-01-31] MEDS: ASPIRIN 81 MG CHEWABLE TABLET PO (08:42)
[2020-01-31] MEDS: IPRATROPIUM BR 0.02% INH SOLN 0.5 MG/2.5 ML VIAL INHALATION ×3 (08:59→23:09)
[2020-01-31] MEDS: ALBUTEROL SULFATE NEB 2.5 MG/0.5 ML INH 5 MG INHALATION ×3 (08:59→23:09)
[2020-01-31 09:48] LABS: Total Protein Urine Random > 600 mg/dL
[2020-01-31] MEDS: SODIUM CHLORIDE 0.9% IV 1,000 ML 100 ML IV CONT ×2 (13:18→21:36)
--- NOTE | 2020-01-31 13:42 | PM.IMPN ---
Progress Note: A&P Assessment and Plan (1) Acute respiratory failure with hypoxemia: Code(s): J96.01 - Acute respiratory failure with hypoxia Status: Acute Assessment and Plan: The patient may have an underlying interstitial lung disease pattern from scleroderma along with superimposed acute process mostly in the LLL related to COVID and bacterial PNA. COVID test positive 01/29/20. Doubt diastolic heart failure. Patient was initiated on BiPAP but able to be weaned to nasal cannula. Continue IV antibiotics and bronchodilators. (2) Severe sepsis: Code(s): A41.9 - Sepsis, unspecified organism; R65.20 - Severe sepsis without septic shock Status: Acute Assessment and Plan: On admission with tachycardia, tachypnea, leukocytosis, and elevated lactic acid of 3.0. Now with septicemia. BCx growing Streptococcus pneumonia with pulmonary being the source of sepsis. UA noted and not c/w UTI. Continue IV antibiotics but will stop Vanco. (3) JOE (acute kidney injury): Code(s): N17.9 - Acute kidney failure, unspecified Status: Acute Assessment and Plan: Baseline Cr 1.4-1.5. Cr 1.6 on admission but increased to 3.8 yesterday and now 4.9. UOP poor. Has Paiz in place. On NS at 100ml/hr. Need to monitor for fluid overload but BP low normal. Nephrology following. No contrast exposure. Probably related to sepsis and transient HoTN. Urine Prot/Cr ration is at least 3.2 since Prot not able to be calculated. Immunology workup in process. Appreciate Nephrology input. Monitor urine output closely. (4) Anasarca: Code(s): R60.1 - Generalized edema Status: Acute Assessment and Plan: Appears to be secondary to systemic sclerosis and acute heart failure. Consider nephrotic syndrome with high urine protein and Urine Prot/Cr ration is at least 3.2. Monitor fluid status. (5) Hyponatremia: Code(s): E87.1 - Hypo-osmolality and hyponatremia Status: Acute Assessment and Plan: The patient's Na 126 on admission and about the same on repeat. Lobito 39 but had been getting IV fluids overnight. Suspect intravascularly dry. Continue to monitor (6) Hyperkalemia: Code(s): E87.5 - Hyperkalemia Status: Acute Assessment and Plan: Mild hyperkalemia at 5.2 which may be secondary to metabolic acidosis. Repeat potassium has normalized. Follow. (7) Chronic anemia: Code(s): D64.9 - Anemia, unspecified Status: Chronic Assessment and Plan: Appears to be anemia of chronic disease. Hgb better here than his baseline 2nd to dehydration. No signs of acute blood loss. Monitor H&H, transfuse p.r.n.. (8) COVID-19: Code(s): U07.1 - COVID-19 Status: Acute Assessment and Plan: Patient positive for COVID-19. He was also positive on 10/24/19. O2 requirement much better. Continue droplet isolation. Continue supportive care. Add Dexamethasone in a few days if still requiring O2 given that he is bacteremic. No Remdesivir given the JOE. (9) Chronic renal failure, stage 3a: Code(s): N18.31 - Chronic kidney disease, stage 3a Status: Chronic Assessment and Plan: As above. Baseline C 1.4 (10) Elevated troponin: Code(s): R77.8 - Other specified abnormalities of plasma proteins Status: Acute Assessment and Plan: Troponin peaked 1.6. May be secondary to demand ischemia versus ACS. EKG reviewed and showing no change from prior EKG in October. No chest pain. Continue Telemetry. Continue ASA and Crestor. (11) Type 2 diabetes mellitus: Qualifiers: Diabetes mellitus complication detail: with polyneuropathy Diabetes mellitus complication status: with neurologic complications Diabetes mellitus long-term insulin use: without terminal operations manager use Qualified Code(s): E11.42 - Type 2 diabetes mellitus with diabetic polyneuropathy Code(s): E1
[2020-01-31 14:06] LABS: Glucose Point of Care 118 (65-105)
--- NOTE | 2020-01-31 17:44 | P.PNNP_ITS ---
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 - early sepsis/possible infection (COVID-19 positive and positive blood cultures) - prerenal factors - low urine sodium * agree with trial of IVFs as respiratory status tolerates * follow trend of repeat labs and UOP * he remains at risk for requiring renal replacement therapy/dialysis (2) Chronic renal failure, stage 3a: Code(s): N18.31 - Chronic kidney disease, stage 3a Status: Chronic Assessment and Plan: * baseline creatinine runs ~ 1.4 - 1.5mg/dl * presumably due to hypertension, diabetes, and vascular disease (3) Sepsis: Code(s): A41.9 - Sepsis, unspecified organism Status: Acute Assessment and Plan: * as noted on admission with tachycardia, tachypnea, leukocytosis, and lactic acidosis * source is likely pneumonia - blood culture with Streptococcus pneumonia * on antibiotics * follow repeat culture data * follow hemodynamics (4) Hyponatremia: Code(s): E87.1 - Hypo-osmolality and hyponatremia Status: Acute Assessment and Plan: * unclear if hypervolemic versus hypovolemic given confounding factors - urine lytes would argue in favor of hypovolemic etiology * his liver issues are also likely playing a role * follow trend with trial of IVFs (5) Anasarca: Code(s): R60.1 - Generalized edema Status: Acute Assessment and Plan: * etiology? 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 Subjective Date/time seen: 01/31/20 17:44 Able to be weaned down to nasal cannula (from BiPAP) but his renal function continues to deteriorate associated with declining urine output; more conversant today than yesterday but has poor recollection of events yesterday; no acute distress voiced at this time. Exam Narrative: Exam Narrative: General: ill appearing male in NAD Heart: normal S1 and S2; no rub Lungs: coarse breath sounds noted Abdomen: soft, nontender, nondistended, positive bowel sounds Extremities: no cyanosis or clubbing; diffuse edema Skin: warm and dry Objective Data Vital Signs Vital Signs: Vital Signs Temp Pulse Resp BP Pulse Ox 01/31/20 16:00 36.1 C L 114 H 28 H 97/51 L 96 01/31/20 14:33 109 H 20 01/30
--- NOTE | 2020-01-31 17:44 | PM.PNNEP ---
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 - early sepsis/possible infection (COVID-19 positive and positive blood cultures) - prerenal factors - low urine sodium agree with trial of IVFs as respiratory status tolerates follow trend of repeat labs and UOP he remains at risk for requiring renal replacement therapy/dialysis (2) Chronic renal failure, stage 3a: Code(s): N18.31 - Chronic kidney disease, stage 3a Status: Chronic Assessment and Plan: baseline creatinine runs ~ 1.4 - 1.5mg/dl presumably due to hypertension, diabetes, and vascular disease (3) Sepsis: Code(s): A41.9 - Sepsis, unspecified organism Status: Acute Assessment and Plan: as noted on admission with tachycardia, tachypnea, leukocytosis, and lactic acidosis source is likely pneumonia - blood culture with Streptococcus pneumonia on antibiotics follow repeat culture data follow hemodynamics (4) Hyponatremia: Code(s): E87.1 - Hypo-osmolality and hyponatremia Status: Acute Assessment and Plan: unclear if hypervolemic versus hypovolemic given confounding factors - urine lytes would argue in favor of hypovolemic etiology his liver issues are also likely playing a role follow trend with trial of IVFs (5) Anasarca: Code(s): R60.1 - Generalized edema Status: Acute Assessment and Plan: etiology? 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 Subjective Date/time seen: 01/31/20 17:44 Able to be weaned down to nasal cannula (from BiPAP) but his renal function continues to deteriorate associated with declining urine output; more conversant today than yesterday but has poor recollection of events yesterday; no acute distress voiced at this time. Exam Narrative: Exam Narrative: General: ill appearing male in NAD Heart: normal S1 and S2; no rub Lungs: coarse breath sounds noted Abdomen: soft, nontender, nondistended, positive bowel sounds Extremities: no cyanosis or clubbing; diffuse edema Skin: warm and dry Objective Data Vital Signs Vital Signs: Vital Signs Temp Pulse Resp BP Pulse Ox 01/31/20 16:00 36.1 C L 114 H 28 H 97/51 L 96 01/31/20 14:33 109 H 20 01/31/20 14:25 107 H 20 01/31/20 14:00 111 H 01/31/20 13:00 99/49 L 01/31/20 12:00 109 H 95 01/31/20 11:50 35.8 C L 110 H 20 83/44 L 96 01/31/20 10:00 104 H 01/31/20 09:44 96 01/31/20 09:08 101 H 22 H 01/31/20 09:05 96 01/31/20 09:00 96 01/31/20 08:59 96 20 01/31/20 08:40 98 01/31/20 08:00 101 H 01/31/20 07:54 36.3 C L 97 22 H 90/40 L 99 01/31/20 07:30 101 H 22 H 96 01/31/20 06:32 100 24 H 93 01/31/20 06:00 97 01/31/20 04:
[2020-01-31 18:27] LABS: Glucose Point of Care 66 (65-105)
[2020-01-31] MEDS: GABAPENTIN 300 MG CAPSULE PO (21:37)
[2020-01-31 21:42] LABS: Glucose Point of Care 72 (65-105)
[2020-02-01] VITALS (16 sets, daily range): BP systolic 100–120; BP diastolic 35–68; PULSE 91–116; RESP 18–920; TEMP 35.9–36.9; O2SAT 94–100
[2020-02-01 05:55] LABS: Basophils Percent Auto 0.2 % (0.2-1.2); Eosinophils Percent Auto 0.3 % (0-4.4); Hematocrit 28.2 % (42.0-52.0); Hemoglobin 8.4 g/dL (14.0-18.0); Immature Granulocyte Absolute 0.05 K/mm3 (0.00-0.031); Immature Granulocyte Percent A 0.8 % (0-0.5); Immature Platelet Fraction Pct 4.5 % (0.9-11.2); Lymphocytes Absolute Auto 0.23 K/mm3 (0.9-3.2); Lymphocytes Percent Auto 3.9 % (18.3-44.2); Mean Corpuscular HGB Conc 29.8 g/dl (32-36); Mean Corpuscular Hemoglobin 24.1 pg (26-34); Mean Platelet Volume 11.8 fl (7.4-10.4); Monocytes Absolute Auto 0.7 K/mm3 (0.1-0.6); Neutrophils Percent Auto 83.8 % (45.5-73.1); Platelet Count Result 140 k/mm3 (150-375); Red Blood Count 3.48 M/mm3 (4.6-6.20); Red Cell Distribution Width 18.3 % (11.5-14.5); White Blood Count 5.9 K/mm3 (4.5-10.0)
--- NOTE | 2020-02-01 06:07 | PCRCNOTE ---
Window of time for administration has passed. See next scheduled administration.
[2020-02-01] MEDS: LEVOTHYROXINE SODIUM 100 MCG TABLET PO (06:56)
[2020-02-01] MEDS: ENOXAPARIN 40 MG/0.4 ML SYRINGE SUB-Q (09:52)
[2020-02-01] MEDS: GABAPENTIN 300 MG CAPSULE PO ×2 (09:52→22:17)
[2020-02-01] MEDS: PANTOPRAZOLE 40 MG TABLET PO (09:52)
[2020-02-01] MEDS: SODIUM CHLORIDE 0.9% IV 1,000 ML 100 ML IV CONT (09:52)
[2020-02-01] MEDS: ALBUTEROL SULFATE NEB 2.5 MG/0.5 ML INH 5 MG INHALATION ×2 (10:56→22:19)
[2020-02-01] MEDS: IPRATROPIUM BR 0.02% INH SOLN 0.5 MG/2.5 ML VIAL INHALATION ×2 (10:56→22:19)
[2020-02-01 12:08] LABS: Anion Gap 16 mmol/L (8-16); Blood Urea Nitrogen 96 mg/dL (9-20); Calcium 6.8 mg/dL (8.4-10.2); Carbon Dioxide 16 mmol/L (22-30); Chloride 94 mmol/L (98-107); Glucose 63 mg/dL (75-110); Magnesium 2.1 mg/dL (1.6-2.3); Phosphorus 11.1 mg/dL (2.5-4.5); Potassium 5.4 mmol/L (3.4-5.0); Sodium 126 mmol/L (137-145)
[2020-02-01 12:15] LABS: Estimated CRCL calculation 9 ml/min; Estimated Glomerular Filt Rate 7
[2020-02-01] MEDS: ASPIRIN 81 MG CHEWABLE TABLET PO (13:08)
[2020-02-01] MEDS: GLUCOSE ORAL GEL 15 GM OF GLUCSE IN 37.5 GM TUBE PO ×2 (13:10→14:09)
--- NOTE | 2020-02-01 13:49 | P.PNNP_ITS ---
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 - early sepsis/possible infection (COVID-19 positive and positive blood cultures) - prerenal factors - low urine sodium - renal ultrasound not done(?) - will reorder * agree with IVFs as respiratory status tolerates - will change to bicarb fluids * follow trend of repeat labs and UOP - he made a bit more urine overnight in comparison to day before yesterday * he remains at risk for requiring renal replacement therapy/dialysis (2) Chronic renal failure, stage 3a: Code(s): N18.31 - Chronic kidney disease, stage 3a Status: Chronic Assessment and Plan: * baseline creatinine runs ~ 1.4 - 1.6mg/dl * presumably due to hypertension, diabetes, and vascular disease (3) Sepsis: Code(s): A41.9 - Sepsis, unspecified organism Status: Acute Assessment and Plan: * as noted on admission with tachycardia, tachypnea, leukocytosis, and lactic acidosis * source is likely pneumonia - blood culture with Streptococcus pneumonia * on antibiotics * follow repeat culture data * follow hemodynamics (4) Hyponatremia: Code(s): E87.1 - Hypo-osmolality and hyponatremia Status: Acute Assessment and Plan: * unclear if hypervolemic versus hypovolemic given confounding factors - urine lytes would argue in favor of hypovolemic etiology * his liver issues are also likely playing a role * follow trend with trial of IVFs (5) Anasarca: Code(s): R60.1 - Generalized edema Status: Acute Assessment and Plan: * etiology? 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 * follow trend for now (7) Type 2 diabetes mellitus: Qualifiers: Diabetes mellitus complication detail: with polyneuropathy Diabetes mellitus complication status: with neurologic complications Diabetes mellitus termite control technician insulin use: without intermediate use Qualified Code(s): E11.42 - Type 2 diabetes mellitus with diabetic polyneuropathy Code(s): E11.9 - Type 2 diabetes mellitus without complications Status: Chronic Assessment and Plan: * follow accuchecks * gylcemic control with SSI Long and extensive discussion with patient and his (by speaker phone) regarding his acute kidney injury associated with fluctuating urine output and mild hyperkalemia -- I voiced my concerns that he may require renal replacement therapy/dialysis fairly soon if he develops overt hyperkalemia, volume overload, uremia...etc. They voiced understanding and are will to proceed with dialysis i f needed -- will reassess tomorrow by UOP and labs before making any final decision regarding dialytic intervention. Will continue to follow. Subjective Date/time seen: 02/01/20 13:49 Respiratory status seems stable at this time; urine output slightly better overnight; BP still remain on the lower
--- NOTE | 2020-02-01 13:49 | PM.PNNEP ---
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 - early sepsis/possible infection (COVID-19 positive and positive blood cultures) - prerenal factors - low urine sodium - renal ultrasound not done(?) - will reorder agree with IVFs as respiratory status tolerates - will change to bicarb fluids follow trend of repeat labs and UOP - he made a bit more urine overnight in comparison to day before yesterday he remains at risk for requiring renal replacement therapy/dialysis (2) Chronic renal failure, stage 3a: Code(s): N18.31 - Chronic kidney disease, stage 3a Status: Chronic Assessment and Plan: baseline creatinine runs ~ 1.4 - 1.6mg/dl presumably due to hypertension, diabetes, and vascular disease (3) Sepsis: Code(s): A41.9 - Sepsis, unspecified organism Status: Acute Assessment and Plan: as noted on admission with tachycardia, tachypnea, leukocytosis, and lactic acidosis source is likely pneumonia - blood culture with Streptococcus pneumonia on antibiotics follow repeat culture data follow hemodynamics (4) Hyponatremia: Code(s): E87.1 - Hypo-osmolality and hyponatremia Status: Acute Assessment and Plan: unclear if hypervolemic versus hypovolemic given confounding factors - urine lytes would argue in favor of hypovolemic etiology his liver issues are also likely playing a role follow trend with trial of IVFs (5) Anasarca: Code(s): R60.1 - Generalized edema Status: Acute Assessment and Plan: etiology? 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 follow trend for now (7) Type 2 diabetes mellitus: Qualifiers: Diabetes mellitus complication detail: with polyneuropathy Diabetes mellitus complication status: with neurologic complications Diabetes mellitus [facility] insulin use: without long line teamster use Qualified Code(s): E11.42 - Type 2 diabetes mellitus with diabetic polyneuropathy Code(s): E11.9 - Type 2 diabetes mellitus without complications Status: Chronic Assessment and Plan: follow accuchecks gylcemic control with SSI Long and extensive discussion with patient and his (by speaker phone) regarding his acute kidney injury associated with fluctuating urine output and mild hyperkalemia -- I voiced my concerns that he may require renal replacement therapy/dialysis fairly soon if he develops overt hyperkalemia, volume overload, uremia...etc. They voiced understanding and are will to proceed with dialysis if needed -- will reassess tomorrow by UOP and labs before making any final decision regarding dialytic intervention. Will continue to follow. Subjective Date/time seen: 02/01/20 13:49 Respiratory status seems stable at this time; urine output slightly better overnight; BP still remain on the lower side of normal; rising K+ noted on AM labs; no acute distress voiced. Exam Narrative: Exam Narrative: General: ill appearing male in NAD Heart: normal S1 and S2; no rub Lungs: coarse breath sounds noted Abdomen: soft, nontender, nondistended, positive bowel sounds Extremities: no cyanosis or clubbing; diffuse edema Skin: warm and intact Objective Data Vital Signs Vital Signs: Vital Signs
[2020-02-01 15:22] LABS: Glucose Point of Care 24 (65-105)
[2020-02-01 15:22] LABS: Glucose Point of Care < 20 (65-105)
[2020-02-01 15:23] LABS: Glucose Point of Care 58 (65-105)
[2020-02-01] MEDS: SODIUM BICARBONATE 8.4% 75 MEQ in SODIUM CHLORIDE 0.45% 1,000 ML IV CONT (15:29)
[2020-02-01 15:40] LABS: Glucose Point of Care 70 (65-105)
--- NOTE | 2020-02-01 16:19 | PM.IMPN ---
Progress Note: A&P Assessment and Plan (1) Acute respiratory failure with hypoxemia: Code(s): J96.01 - Acute respiratory failure with hypoxia Status: Acute Assessment and Plan: The patient may have an underlying interstitial lung disease pattern from scleroderma along with superimposed acute process mostly in the LLL related to COVID and bacterial PNA. COVID test positive 01/29/20. Doubt acute heart failure. Patient was initiated on BiPAP but able to be weaned to nasal cannula. Now to room air. Continue IV antibiotics and bronchodilators. (2) Severe sepsis: Code(s): A41.9 - Sepsis, unspecified organism; R65.20 - Severe sepsis without septic shock Status: Acute Assessment and Plan: On admission with tachycardia, tachypnea, leukocytosis, and elevated lactic acid of 3.0. Now with septicemia with BCx growing Streptococcus pneumonia. Pulmonary being the source of sepsis. UA noted and not c/w UTI. Continue IV antibiotics (3) Acute on chronic renal failure: Code(s): N17.9 - Acute kidney failure, unspecified; N18.9 - Chronic kidney disease, unspecified Status: Acute Assessment and Plan: Baseline Cr 1.4-1.5. Cr 1.6 on admission but increased to 4.9 yesterday and now 8.1; BUN 96. UOP poor but slightly better today. Has Paiz in place. On IV fluids and changed to add bicarb given his acidosis. Need to monitor for fluid overload but BP remains low normal. No contrast exposure. Probably related to sepsis and transient HoTN with underlying CKD. Urine Prot/Cr ration is at least 3.2 since Prot not able to be calculated. Immunology workup in process. Appreciate Nephrology input. Monitor urine output closely. (4) Anasarca: Code(s): R60.1 - Generalized edema Status: Acute Assessment and Plan: Appears to be secondary to systemic sclerosis and acute heart failure. Consider nephrotic syndrome with high urine protein and Urine Prot/Cr ration is at least 3.2. Monitor fluid status. (5) Hyponatremia: Code(s): E87.1 - Hypo-osmolality and hyponatremia Status: Acute Assessment and Plan: The patient's Na 126 on admission and about the same on repeat. Lobito 39 but had been getting IV fluids overnight. Suspect intravascularly dry. Continue to monitor. (6) Hyperkalemia: Code(s): E87.5 - Hyperkalemia Status: Acute Assessment and Plan: Mild hyperkalemia at 5.4 today related to the renal failure. Follow. (7) Chronic anemia: Code(s): D64.9 - Anemia, unspecified Status: Chronic Assessment and Plan: Appears to be anemia of chronic disease. Hgb 11 but has dropped to 8 range which is closer to his baseline. Suspect pateint dehydrated on admission. No signs of acute blood loss. Monitor H&H, transfuse p.r.n.. (8) COVID-19: Code(s): U07.1 - COVID-19 Status: Acute Assessment and Plan: Patient positive for COVID-19. He was also positive on 10/24/19. Off O2 at this time. Continue droplet isolation. Continue supportive care. No Remdesivir given the JOE. Add Dexamethasone in a few days if requiring O2 again or worsened but hold for now given that he is bacteremic. (9) Elevated troponin: Code(s): R77.8 - Other specified abnormalities of plasma proteins Status: Acute Assessment and Plan: Troponin peaked 1.6. May be secondary to demand ischemia versus ACS. EKG reviewed and showing no change from prior EKG in October. No chest pain. Continue Telemetry. Continue ASA. LFTs okay; Continue Crestor. (10) Type 2 diabetes mellitus: Qualifiers: Diabetes mellitus complication detail: with polyneuropathy Diabetes mellitus complication status: with neurologic complications Diabetes mellitus assisted insulin use: without assisted use Qualified Code(s): E11.42 - Type 2 diabetes mellitus with diabetic polyneuropathy Code(s): E11.9 - Type 2 jay
[2020-02-01 16:22] LABS: Glucose 42 mg/dL (75-110)
[2020-02-01] MEDS: SODIUM BICARBONATE 8.4% 75 MEQ in DEXTROSE 5%/0.45% SOD CHL 1,000 ML IV CONT (17:54)
[2020-02-01 19:58] LABS: Glucose Point of Care 67 (65-105)
[2020-02-01 20:41] LABS: Glucose Point of Care 82 (65-105)
[2020-02-01] MEDS: ROSUVASTATIN 10 MG TABLET 40 MG PO (22:18)
[2020-02-02] VITALS (30 sets, daily range): BP systolic 103–197; BP diastolic 51–87; PULSE 94–142; RESP 16–39; TEMP 36.4–37.4; O2SAT 92–97
[2020-02-02 00:36] LABS: Glucose Point of Care 124 (65-105)
--- NOTE | 2020-02-02 04:30 | PCRCNOTE ---
Window of time for administration has passed. See next scheduled administration.
[2020-02-02 04:38] LABS: Glucose Point of Care 129 (65-105)
[2020-02-02] MEDS: LEVOTHYROXINE SODIUM 100 MCG TABLET PO (05:40)
[2020-02-02 07:19] LABS: Hematocrit 29.8 % (42.0-52.0); Immature Platelet Fraction Pct 3.1 % (0.9-11.2); Mean Corpuscular HGB Conc 30.2 g/dl (32-36); Mean Corpuscular Volume 79.5 fl (80-100); Mean Platelet Volume 10.9 fl (7.4-10.4); Platelet Count Result 128 k/mm3 (150-375); Red Blood Count 3.75 M/mm3 (4.6-6.20); Red Cell Distribution Width 18.1 % (11.5-14.5); White Blood Count 6.4 K/mm3 (4.5-10.0)
[2020-02-02] MEDS: SODIUM BICARBONATE 8.4% 75 MEQ in DEXTROSE 5%/0.45% SOD CHL 1,000 ML IV CONT (08:44)
[2020-02-02 08:51] LABS: Albumin Level 2.7 g/dL (3.5-5.1); Anion Gap 18 mmol/L (8-16); Blood Urea Nitrogen 104 mg/dL (9-20); Calcium 6.3 mg/dL (8.4-10.2); Carbon Dioxide 14 mmol/L (22-30); Chloride 91 mmol/L (98-107); Estimated CRCL calculation 9 ml/min; Estimated Glomerular Filt Rate 6; Glucose 131 mg/dL (75-110); Magnesium 2.1 mg/dL (1.6-2.3); Phosphorus 12.7 mg/dL (2.5-4.5); Potassium 5.7 mmol/L (3.4-5.0); Sodium 123 mmol/L (137-145)
[2020-02-02] MEDS: DEXTROSE 50% 25 GM/50 ML SYRINGE IV PUSH (08:56)
[2020-02-02] MEDS: ENOXAPARIN 40 MG/0.4 ML SYRINGE SUB-Q (08:56)
--- NOTE | 2020-02-02 09:35 | PCPTNOTE ---
Attempted PT eval. Nurse requesting hold this date. Pt off bipap and desaturating easily. Will try again tomorrow. Kiesha Vo, JOSIET
[2020-02-02 09:36] LABS: Glucose Point of Care 66 (65-105)
[2020-02-02 09:45] LABS: Glucose Point of Care 150 (65-105)
[2020-02-02] MEDS: IPRATROPIUM BR 0.02% INH SOLN 0.5 MG/2.5 ML VIAL INHALATION (10:20)
[2020-02-02] MEDS: ALBUTEROL SULFATE NEB 2.5 MG/0.5 ML INH 5 MG INHALATION (10:20)
--- NOTE | 2020-02-02 11:11 | P.PNNP_ITS ---
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 * He has received IV fluids but his creatinine continues to rise. * I think he needs dialysis as he will become uremic if we do not dialyze him soon. * I discussed at length with the patient. We discussed the risks benefits alternatives and the process of dialysis and he agrees to proceed. (2) Chronic renal failure, stage 3a: Code(s): N18.31 - Chronic kidney disease, stage 3a Status: Chronic Assessment and Plan: * baseline creatinine runs ~ 1.4 - 1.6mg/dl * presumably due to hypertension, diabetes, and vascular disease (3) Sepsis: Code(s): A41.9 - Sepsis, unspecified organism Status: Acute Assessment and Plan: * as noted on admission with tachycardia, tachypnea, leukocytosis, and lactic acidosis * Bacteremia with strep pneumonia and he has pneumonia as well on his chest x-r ay. * He is on antibiotics (4) Hyponatremia: Code(s): E87.1 - Hypo-osmolality and hyponatremia Status: Acute Assessment and Plan: * unclear if hypervolemic versus hypovolemic given confounding factors - urine lytes would argue in favor of hypovolemic etiology * Sodium level is lower today. Dialysis should help this. * We will try not to correct too quickly. (5) Anasarca: Code(s): R60.1 - Generalized edema Status: Acute Assessment and Plan: * etiology? * possibilities include nephrosis, liver ds, JOE, or a combination of those. 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 will correct with dialysis. (7) Type 2 diabetes mellitus: Qualifiers: Diabetes mellitus exterminator helper termite insulin use: without exterminator helper termite use Diabetes mellitus complication status: with neurologic complications Diabetes mellitus complication detail: with polyneuropathy Qualified Code(s): E11.42 - Type 2 diabetes mellitus with diabetic polyneuropathy Code(s): E11.9 - Type 2 diabetes mellitus without complications Status: Chronic Assessment and Plan: * follow accuchecks * gylcemic control with SSI Subjective Date/time seen: 02/02/20 11:11 Interval history: The patient is awake. He is on a BiPAP machine. He denies shortness of breath. He has no abdominal pain. No chest pain. Review of Systems Cardiovascular: Cardiovascular: Reports no additional cardiovascular complaints Respiratory: Respiratory: Reports no additional respiratory complaints Gastrointestinal: Gastrointestinal: Reports no additional gastrointestinal complaints Genitourinary: Genitourinary: Reports no additional male genitourinary complaints Exam Narrative: Exam Narrative: General: ill appearing male in NAD Heart: normal S1 and S2; no rub Lungs: coarse breath sounds bilaterally Abdomen: soft, nontender, nondistended, positive bowel sound
--- NOTE | 2020-02-02 11:11 | PM.PNNEP ---
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 He has received IV fluids but his creatinine continues to rise. I think he needs dialysis as he will become uremic if we do not dialyze him soon. I discussed at length with the patient. We discussed the risks benefits alternatives and the process of dialysis and he agrees to proceed. (2) Chronic renal failure, stage 3a: Code(s): N18.31 - Chronic kidney disease, stage 3a Status: Chronic Assessment and Plan: baseline creatinine runs ~ 1.4 - 1.6mg/dl presumably due to hypertension, diabetes, and vascular disease (3) Sepsis: Code(s): A41.9 - Sepsis, unspecified organism Status: Acute Assessment and Plan: as noted on admission with tachycardia, tachypnea, leukocytosis, and lactic acidosis Bacteremia with strep pneumonia and he has pneumonia as well on his chest x-ray. He is on antibiotics (4) Hyponatremia: Code(s): E87.1 - Hypo-osmolality and hyponatremia Status: Acute Assessment and Plan: unclear if hypervolemic versus hypovolemic given confounding factors - urine lytes would argue in favor of hypovolemic etiology Sodium level is lower today. Dialysis should help this. We will try not to correct too quickly. (5) Anasarca: Code(s): R60.1 - Generalized edema Status: Acute Assessment and Plan: etiology? possibilities include nephrosis, liver ds, JOE, or a combination of those. 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 will correct with dialysis. (7) Type 2 diabetes mellitus: Qualifiers: Diabetes mellitus fdc insulin use: without exterminator termite use Diabetes mellitus complication status: with neurologic complications Diabetes mellitus complication detail: with polyneuropathy Qualified Code(s): E11.42 - Type 2 diabetes mellitus with diabetic polyneuropathy Code(s): E11.9 - Type 2 diabetes mellitus without complications Status: Chronic Assessment and Plan: follow accuchecks gylcemic control with SSI Subjective Date/time seen: 02/02/20 11:11 Interval history: The patient is awake. He is on a BiPAP machine. He denies shortness of breath. He has no abdominal pain. No chest pain. Review of Systems Cardiovascular: Cardiovascular: Reports no additional cardiovascular complaints Respiratory: Respiratory: Reports no additional respiratory complaints Gastrointestinal: Gastrointestinal: Reports no additional gastrointestinal complaints Genitourinary: Genitourinary: Reports no additional male genitourinary complaints Exam Narrative: Exam Narrative: General: ill appearing male in NAD Heart: normal S1 and S2; no rub Lungs: coarse breath sounds bilaterally Abdomen: soft, nontender, nondistended, positive bowel sounds Extremities: no cyanosis or clubbing; diffuse edema Skin: No rash Objective Data Vital Signs Vital Signs: Vital Signs - 24 hr 02/01/20 12:00 02/01/20 14:00 02/01/20 16:00 Temperature 36.9 C 36.9 C Pulse Rate 112 H 111 H 114 H Respiratory Rate 20 20 Blood Pressure 100/50 L 120/68 Pulse Oximetry 99 100 02/01/20 18:00 02/01/20 20:00 02/01/20 22:00 Temperature 36.4 C L Pulse Rate 116 H 116 H 100 Respiratory Rate 18 Blood Pressure 109/66 Pulse Oximetry 95
--- NOTE | 2020-02-02 13:01 | PM.PROC ---
Procedure Note - Detailed Date of procedure: 02/02/20 Pre-op diagnosis: Acute renal failure Acute renal failure Post-op diagnosis: same Procedure performed: Placement right internal jugular Guille central venous catheter for acute dialysis Description of procedure: The patient would is in his hospital bed in the intermediate care unit. He was placed in a supine position. The head was slightly elevated and turned to the left. The right neck and upper chest were prepped and draped with chlorhexidine. Full sterile precautions with gown and full draping were used. Time-out was done before the procedure. Local was infiltrated over the right internal jugular vein. The internal jugular vein was then cannulated and a guidewire was able to be passed into the superior vena cava. This tract was dilated and a dual lumen 20 cm length Guille catheter was passed over the guidewire into the distal superior vena cava right atrial junction. Both ports aspirated blood easily and flushed well with saline. Additional local was infiltrated. The line was sutured to the skin with 2 0 nylon. A sterile sandwiched type dressing was placed. Portable chest x-ray is pending. Patient tolerated the procedure well. Anesthesia: local (0.5% lidocaine plain) Surgeon: Natan Damon MD Estimated blood loss (mL): 2 Drains: No Packing: No Complications: None Condition: stable Disposition: ICU (IMU) Findings: Pending chest x-ray
[2020-02-02 13:14] LABS: Glucose Point of Care 106 (65-105)
--- NOTE | 2020-02-02 14:57 | PCOTNOTE ---
Patient in dialysis this PM, unavailable to be seen for OT. Will continue plan of care tomorrow, 02/03/2020.
[2020-02-02 16:23] LABS: Hepatitis B Surface Antigen Negative (Negative)
--- NOTE | 2020-02-02 16:28 | PCRCNOTE ---
Window of time for administration has passed. See next scheduled administration.
[2020-02-02 16:41] LABS: Hepatitis B Surface Anti Res Negative
[2020-02-02 17:08] LABS: Legionella pneumophila Ag Ur Not Detected (Not Detected)
--- NOTE | 2020-02-02 17:29 | PM.IMPN ---
Progress Note: A&P Assessment and Plan (1) Acute respiratory failure with hypoxemia: Code(s): J96.01 - Acute respiratory failure with hypoxia Status: Acute Assessment and Plan: The patient may have an underlying interstitial lung disease pattern from scleroderma along with superimposed acute process mostly in the LLL related to COVID and bacterial PNA. COVID test positive 01/29/20. Doubt acute heart failure. Patient was initiated on BiPAP but able to be weaned to nasal cannula then to room air yesterday. Up to 4L now possibly related to fluid overload. Wean O2 again as tolerated after HD. Continue abx and neb treatments (2) Severe sepsis: Code(s): A41.9 - Sepsis, unspecified organism; R65.20 - Severe sepsis without septic shock Status: Acute Assessment and Plan: On admission with tachycardia, tachypnea, leukocytosis, and elevated lactic acid of 3.0. Now with septicemia with BCx growing Streptococcus pneumonia. Pulmonary being the source of sepsis. UA noted and not c/w UTI. Continue IV antibiotics. (3) Acute on chronic renal failure: Code(s): N17.9 - Acute kidney failure, unspecified; N18.9 - Chronic kidney disease, unspecified Status: Acute Assessment and Plan: Baseline Cr 1.4-1.5. Cr 1.6 on admission but increased to 8.1 yesterday and now 8.7; BUN 104. No contrast exposure. Probably related to sepsis and transient HoTN with underlying CKD. UOP remains poor. Has Paiz in place. On IV fluids with bicarb given his acidosis. Immunology workup in process. Potassium elevated. Guille placed and HD started today. Appreciate Nephrology input. Monitor urine output closely. (4) Anasarca: Code(s): R60.1 - Generalized edema Status: Acute Assessment and Plan: Appears to be secondary to systemic sclerosis and probably not acute heart failure. Consider nephrotic syndrome with high urine protein and Urine Prot/Cr ration is at least 3.2. Monitor fluid status. HD will help control fluid status. (5) Hyponatremia: Code(s): E87.1 - Hypo-osmolality and hyponatremia Status: Acute Assessment and Plan: The patient's Na 126 on admission and has trended down to 123 related to fluid overload. TSH normal. Should improve with HD. Continue to monitor. (6) Hyperkalemia: Code(s): E87.5 - Hyperkalemia Status: Acute Assessment and Plan: Hyperkalemia at 5.7 today related to the renal failure. Should improve with HD. Follow. Check cortisol level (7) Chronic anemia: Code(s): D64.9 - Anemia, unspecified Status: Chronic Assessment and Plan: Appears to be anemia of chronic disease. Hgb 11 but has dropped to 8-9 range which is closer to his baseline. Suspect patient dehydrated on admission. No signs of acute blood loss. Monitor H&H, transfuse p.r.n.. (8) COVID-19: Code(s): U07.1 - COVID-19 Status: Acute Assessment and Plan: Patient positive for COVID-19 01/29/20. He was also positive on 10/24/19. Continue droplet isolation. Continue supportive care. No Remdesivir given the JOE. Patient was weaned to room air but now back on O2 but felt related to fluid overload from his JOE. Add Dexamethasone if no improvement with HD (currently on hold for now given that he is bacteremic). (9) Elevated troponin: Code(s): R77.8 - Other specified abnormalities of plasma proteins Status: Acute Assessment and Plan: Troponin peaked 1.6. May be secondary to demand ischemia versus ACS. EKG reviewed and showing no change from prior EKG in October. No chest pain. Echo showing no wall motion abnormalities. Continue Telemetry. Continue ASA. LFTs okay; Continue Crestor. (10) Type 2 diabetes mellitus: Qualifiers: Diabetes mellitus complication detail: with polyneuropathy Diabetes mellitus complication status: with neurologic complications Diabetes mellitus
--- NOTE | 2020-02-02 20:06 | PDCODEBLUE ---
Code Blue Note Code Blue Note Time Arrived at Code Blue: 1919 Initial Rhythm on Arrival: PEA Airway Management: Initiated bagging pt on arrival Chest Compressions: In process on arrival to bedside Result of Code Blue: Pt Cardiac Rhythm Post Code: Asystole. Code Blue Summary: Patient went on to PEA ACLS was ongoing chest compression in process multiple rounds of Epinephrine/Atropine/Bicarb. Rhythm check was asystole no ROSC was achieved. Patient .
--- NOTE | 2020-02-02 20:06 | PC.NURSE ---
Patient noted to be alarming for heart rate of 47 in a ventricular rhythm at 192. PPE donned prior to going into patient room, upon entering room patient was noted to be dubose in color and not breathing. Compressions started immediately and code called overhead. ACLS utilized throughout entirety. Time of called [place] [address] Stevens. See code sheet for additional information regarding code.
[2020-02-03 17:05] LABS: Kappa\\Lambda Light Chains 1.97 (0.26-1.65)
[2020-02-03 21:27] LABS: Albumin 2.3 g/dL (3.8-4.8); Alpha 1 Globulin 0.6 g/dL (0.2-0.3); Beta 1 Globulin 0.3 g/dL (0.4-0.6); Gamma Globulin 0.6 g/dL (0.8-1.7); Protein, Total 5.2 g/dL (6.1-8.1)
--- NOTE | 2020-02-04 07:06 | P.DN_ITS ---
Discharge Sum: Prov Provider Primary care physician: PHYSICIAN NOT ON STAFF Admitting provider: Jose L Alas MD Consults: 01/30/20 04:34 Consult to Physician Routine Comment: EXCHANGE NOTIFIED OF CONSULT Consulting Provider: Vahid Pedroza call or contact centre team leader/MD group to consult: Cardiology Reason for consultation: elev trop Has provider been notified: Yes 01/30/20 08:49 Consult to Physician Routine Comment: SPOKE WITH EXCHANGE Consulting Provider: Bernt Ahn call or contact centre team leader/MD group to consult: Nephrology Reason for consultation: JOE Has provider been notified: Yes 02/02/20 Consult to Physician Routine Comment: EXCHANGE NOTIFIED OF CONSULT Consulting Provider: Natan Damon Reason for consultation: place temporary nontunneled dialysis catheter Has provider been notified: Yes Pronouncing clinician: Landry Jacob Discharge Sum: Diag PCOD Cardiac arrest Contributing Factors (1) Acute respiratory failure with hypoxemia: (2) Severe sepsis: (3) Acute on chronic renal failure: (4) Anasarca: (5) Hyponatremia: (6) Hyperkalemia: (7) Chronic anemia: (8) COVID-19: (9) Elevated troponin: (10) Type 2 diabetes mellitus: (11) Hypertension: (12) Scleroderma: (13) Hypothyroidism: (14) Chronic diastolic (congestive) heart failure: Discharge Sum: Summary Date and Time Date of admission: 01/29/20 23:48 Date of : 02/02/20 Time of : 19:38 Summary Details: 63 year old male with a history of scleroderma, type 2 diabetes mellitus with nephropathy, HTN, HLD, and CAD s/p CABG in 2018 who presented to the hospital with a complaint of increased shortness of breath for about the past 3 days. He reports associated nonproductive hacking cough but denies any fever, wheezing, chest pain, or chills. The patient agrees that he is more swollen than usual. CXR showing mostly left lower airspace disease. BNP 33K. IV Lasix therapy was started with poor response and rising Cr so this was stopped quickly. Echo showing EF 55% with Grade I DD. IV fluids started. Patient was initiated on BiPAP on admission but able to be weaned to nasal cannula then to room air. Creatinine worsened despite the IV fluids. Cardiology and nephrology were involved in his care. COVID test positive 01/29/20. On admission, patient also with septicemia with tachycardia, tachypnea, leukocytosis, elevated lactic acid with +BCx with Streptococcus pneumonia. Pulmonary being the source of sepsis. Baseline Cr 1.4-1.5. Cr 1.6 on admission but increased to 8.7; BUN 104. No contrast exposure. Probably related to sepsis and transient HoTN with underlying CKD. UOP remained poor. Guille placed 02/01 and HD started that day. He completed HD without incident and was returned to the IMU. In the IMU, he had a HR 47 with ventricular rhythm at 192. The staff entered the room and found patient dubose in color and not breathing. CPR started and Code Blue called. Time of called 1937. Family notified. Spoke with the next day to offer condolences and all questions answered. Additional Data Family: contacted Attending/PCP notified?: Yes Attending physician: Oneal Jacob MD Was code activated?: Yes Hospice patient?: No
[2020-02-04 11:03] LABS: Pneumococcal Antigen Urine Detected (Not Detected)
[2020-02-08 19:01] LABS: Creatinine, Random Urine 171 mg/dL (20-320); Total Protein/Creatinine Ratio 4965 mg/g creat (22-128)
[2020-02-09 08:58] LABS: Chloride Rand Ur 20 mmol/L (32-290); Chloride/Creatinine Rand Ur 15 (23-275); Creatinine Random Urine 133 mg/dL (20-320)
== END 2020-02-02 19:38 | disposition expired | DRG 871 ==
LOC: ANHED 23:05 → ANHIMU 01-30 01:18
PROVIDERS: Internal Medicine Nephrology; Admitting Provider Family Medicine; Emergency Provider Emergency Medicine; Visit Provider Internal Medicine
DX: A41.89 Other specified sepsis (principal); U07.1 COVID-19; I50.33 Acute on chronic diastolic (congestive) heart failure; I21.A1 Myocardial infarction type 2; I13.0 Hypertensive heart and chronic kidney disease with heart failure and stage 1 through stage 4 chronic kidney disease, or unspecified chronic kidney disease; E87.1 Hypo-osmolality and hyponatremia; I46.9 Cardiac arrest, cause unspecified; R65.20 Severe sepsis without septic shock; E11.21 Type 2 diabetes mellitus with diabetic nephropathy; E11.22 Type 2 diabetes mellitus with diabetic chronic kidney disease; E87.5 Hyperkalemia; D64.9 Anemia, unspecified; E78.5 Hyperlipidemia, unspecified; E03.9 Hypothyroidism, unspecified; N18.31 Chronic kidney disease, stage 3a; E83.42 Hypomagnesemia; M34.9 Systemic sclerosis, unspecified; I25.10 Atherosclerotic heart disease of native coronary artery without angina pectoris; Z95.1 Presence of aortocoronary bypass graft
CPT/HCPCS: 36415; 36600; 71045; 71046; 76775; 80048; 80053; 80069; 81001; 81002; 81050; 82436; 82570; 82805; 82947; 83036; 83605; 83735; 83880; 83883; 84100; 84132; 84155; 84156; 84165; 84166; 84300; 84443; 84484; 85025; 85027; 85055; 85610; 85730; 85999; 86706; 87040; 87077; 87181; 87184; 87186; 87340; 87449; 87635; 87804; 87899; 92950; 93005; 94003; 94640; 96374; 97165; 99291; C1752; A9270; C8929; C9803; G0257; J0171; J0456; J0461; J0696; J1644; J1650; J1815; J1940; J3370; J3475; J7030; P9047; Q9957; U0003